=== PATIENT | female | born 1975 | race Caucasian/White ===

== ENCOUNTER → 2018-08-29 15:05 | Outpatient (CLI) | payer OTHER, SELFPAY ==
--- NOTE | 2018-08-29 15:06 | DI.MG.S_ITS ---
BILATERAL DIGITAL SCREENING MAMMOGRAM 3D/2D WITH CAD: 08/29/2018 CLINICAL: Baseline exam. Routine screening. No prior exams were available for comparison. There are scattered fibroglandular elements in both breasts. Current study was also evaluated with a Computer Aided Detection (CAD) system. There is an irregular focal asymmetry in the left breast central to the nipple anterior depth. No other significant masses, calcifications, or other findings are seen in either breast. IMPRESSION: INCOMPLETE: NEEDS ADDITIONAL IMAGING EVALUATION The irregular focal asymmetry in the left breast is indeterminate. Additional views with possible ultrasound are recommended. This exam was interpreted at Station ID: [id number]. NOTE: For mammograms, a report in lay terms will be sent to the patient. Approximately 15% of breast malignancies will not be visualized mammographically. In the management of a palpable breast mass, a negative mammogram must not discourage biopsy of a clinically suspicious lesion. Electronically Signed By: Joann urbina/cristi:08/29/2018 15:53:56 letter sent: Additional Imaging Needed ACR BI-RADS Category 0: Incomplete 3340F
== END ==
PROVIDERS: PCP Student in an Organized Health Care Education/Training Program; Visit Provider Student in an Organized Health Care Education/Training Program
DX: Z12.31 Encounter for screening mammogram for malignant neoplasm of breast (principal)
CPT/HCPCS: 77063; 77067

== ENCOUNTER → 2018-09-14 13:37 | Outpatient (CLI) | payer OTHER, SELFPAY ==
--- NOTE | 2018-09-14 13:38 | DI.US.S_ITS ---
LIMITED ULTRASOUND OF LEFT BREAST AND AXILLA: 09/14/2018 CLINICAL: Patient returns today to evaluate a density in the left breast. Comparison is made to exams dated: 09/14/2018 mammogram and 08/29/2018 mammogram - [facility]. Color flow and real-time ultrasound of the left breast 5 o'clock, and axilla regions were performed on the areas of interest. There is an oval intraductal mass with circumscribed margins in the left breast at 5 o'clock in the retroareolar region. This oval mass is hypoechoic. This correlates with mammography findings. Color flow imaging demonstrates that there is no internal vascularity present. No abnormalities were seen sonographically in the left axilla. IMPRESSION: SUSPICIOUS OF MALIGNANCY The oval intraductal mass in the left breast is suggestive of a papilloma but is at an intermediate suspicion for malignancy. An ultrasound guided biopsy is recommended. The findings were discussed with the patient at the conclusion of the study by Dr. Rivers. This exam was interpreted at Station ID: [id number]. Electronically Signed By: Sae cabrera/:09/16/2018 15:56:51 letter sent: Biopsy Required Ultrasound BI-RADS: 4b Suspicious abnormality - intermediate suspicion of malignancy
--- NOTE | 2018-09-14 13:38 | DI.MG.S_ITS ---
UNILATERAL LEFT DIGITAL DIAGNOSTIC MAMMOGRAM 3D/2D WITH ADDITIONAL VIEWS: 09/14/2018 CLINICAL: Additional evaluation requested from prior study. [facility] is [facility] There are scattered fibroglandular elements in left breast. There is an oval equal density focal asymmetry with a circumscribed margin in the left breast at 6 o'clock in the retroareolar region. No other significant masses or calcifications are seen in the breast. IMPRESSION: INCOMPLETE: NEEDS ADDITIONAL IMAGING EVALUATION The oval equal density focal asymmetry in the left breast is indeterminate. An ultrasound is recommended. This exam was interpreted at Station ID: [id number]. NOTE: For mammograms, a report in lay terms will be sent to the patient. Approximately 15% of breast malignancies will not be visualized mammographically. In the management of a palpable breast mass, a negative mammogram must not discourage biopsy of a clinically suspicious lesion. Electronically Signed By: Sae cabrera/cristi:09/14/2018 14:00:03 ACR BI-RADS Category 0: Incomplete 3340F
== END ==
PROVIDERS: PCP Student in an Organized Health Care Education/Training Program; Visit Provider Student in an Organized Health Care Education/Training Program
DX: R92.8 Other abnormal and inconclusive findings on diagnostic imaging of breast (principal); N63.23 Unspecified lump in the left breast, lower outer quadrant
CPT/HCPCS: 76642; 77065; G0279

== ENCOUNTER → 2018-09-30 14:09 | Outpatient (CLI) | payer OTHER, SELFPAY ==
--- NOTE | 2018-09-30 | PATH_ITS ---
[facility] Accession Number: [id number] . 01 Material submitted: . breast - LEFT BREAST . 01 Clinical history: . MASS 5:30 RETROAREOLAR . 01 Diagnosis: Left Breast, Mass at 5:30 o'clock, Retroareolar, Biopsy: Fragments of intraductal papilloma. Background breast with focal giant cell reaction and hemosiderin-laden macrophages, consistent with cyst rupture. Negative for atypia, carcinoma in situ, and invasive malignancy. MRV/10/06/2018 . 01 Electronically signed: . Amelia Montanez MD, Pathologist NPI- [id number] . 01 Gross description: . Received in formalin and is designated left breast mass 5:30 retroareolar. Specimen is received with plastic filter in container. Specimen is found loose in container. Specimen consists of multiple fragments of ceron-yellow soft tissue measuring 1.8 x 0.9 x 0.4 cm in aggregate. All tissue is entirely submitted in one cassette. Per the specimen requisition, the collection date was 09/30/2018. Per the container, the collection time was 3:10 p.m. Total fixation time is 24-48 hours. (MR:[id number]) /FRR . 01 Pathologist provided ICD-10: N63.0 . 01 CPT . 236972 Performed at: [address] [facility] [address], [place], [place] [id number] MD Sae Colin MD Phone: [phone]
--- NOTE | 2018-09-30 | DI.MG.S_ITS ---
UNILATERAL LEFT DIGITAL DIAGNOSTIC MAMMOGRAM POST-EXCISIONAL BIOPSY: 09/30/2018 CLINICAL: Left breast mass. Comparison is made to exams dated: 09/30/2018 ultrasound biopsy, 09/14/2018 ultrasound, 09/14/2018 mammogram, and 08/29/2018 mammogram - [facility]. There are scattered fibroglandular elements in left breast. A biopsy marker is noted in the left breast 6:00 axis corresponding with location of suspicious intraductal lesion of interest seen on recent diagnostic left breast evaluation. IMPRESSION: POST PROCEDURE MAMMOGRAM FOR MARKER PLACEMENT Biopsy marker in place at the 6:00 axis, anterior left breast. This exam was interpreted at Station ID: [id number]. NOTE: For mammograms, a report in lay terms will be sent to the patient. Approximately 15% of breast malignancies will not be visualized mammographically. In the management of a palpable breast mass, a negative mammogram must not discourage biopsy of a clinically suspicious lesion. Electronically Signed By: Blade Gutierrez M.D. aty/:09/30/2018 15:49:14 ACR BI-RADS Category Post-procedure mammogram for marker placement
--- NOTE | 2018-09-30 14:10 | DI.US.S_ITS ---
ULTRASOUND GUIDED BIOPSY LEFT BREAST USING VACUUM DEVICE WITH MARKING DEVICE INSERTED AND POST MAMMOGRAPHIC IMAGIN09/30/2018 CLINICAL: Left breast mass. PATIENT CONSENT: Risks (minor bleeding, infection, vasovagal reaction and repeat procedure), benefits and alternatives were explained to the patient and written informed consent was obtained. Correlation is made to exams dated: 09/14/2018 ultrasound, 09/14/2018 mammogram, and 08/29/2018 mammogram - [facility]. An ultrasound guided biopsy using real-time ultrasound was performed for the lesion located in the left breast at 6 o'clock in the retroareolar region. This was described on the previous mammography and ultrasound reports. The skin was prepped in the usual manner. Local anesthetic was administered to the access site. A skin ronal was made in the breast. The abnormality was approached from the lateral aspect. A 13 gauge biopsy needle was placed adjacent to the abnormality under ultrasound guidance. Once the needle was documented to be in the correct location, six specimens were obtained using the Mammotome biopsy system. A clip was inserted into the biopsy cavity. A sterile dressing was applied to the access site. Post procedure mammographic imaging demonstrates the location device at the targeted area. The specimens were sent to the laboratory for pathological analysis. IMPRESSION: ULTRASOUND GUIDED BIOPSY BENIGN Ultrasound guided biopsy of the lesion in the left breast at 6 o'clock in the retroareolar region was successful. Pathology demonstrates an intraductal papilloma. Given the size of the mass and the potential for pathological upstaging, a surgical consultation is recommended. Findings were reported to Dr. Cruz's triage nurse on 10/17/18 at 1:05 PM. This exam was interpreted at Station ID: [id number]. Blade salazar,ddp/:10/17/2018 13:06:06
== END ==
PROVIDERS: PCP Student in an Organized Health Care Education/Training Program; Visit Provider Student in an Organized Health Care Education/Training Program
DX: D24.2 Benign neoplasm of left breast (principal)
CPT/HCPCS: 19083; 77065

== ENCOUNTER 2018-10-19 13:00 | Outpatient (RCR) | payer OTHER, SELFPAY ==
--- NOTE | 2018-09-15 16:33 | PT.OIE ---
Current Diagnoses Stress incontinence (female) (male) (09/15/18) Overflow incontinence (09/15/18) Past Medical History (Last Reviewed 08/04/18 @ 10:33 by Avinash Ortiz MD) Attention deficit hyperactivity disorder (ADHD) (Chronic 08/25/16) Anxiety and depression (Chronic 08/25/16) Hypertension (Acute) ADHD (attention deficit hyperactivity disorder) (Chronic 2007) Anxiety (Chronic 2008) Depression (Chronic 2007) Bulimia (Resolved 1993) Chickenpox (Resolved 1985) Past Surgical History (Last Reviewed 08/04/18 @ 10:33 by Avinash Ortiz MD) Status post delivery (Resolved 09/10/04) Status post knee surgery (Chronic) Provider Visit Care Team Role Provider Type Ricki Cruz MD Primary Care Provider Physician Specialty: Internal Medicine Address: [address] [place] [address] Email: Avinash Ortiz MD Attending Provider Physician Specialty: WIND TURBINE DESIGN ENGINEER Address: [address] [place] [address] Email: Physical Therapy Initial Evaluation PT-OP-A Visit Information Start: 09/15/18 13:58 Freq: Status: Active Protocol: Document 09/15/18 13:50 BS (Rec: 09/15/18 14:03 BS [id number]) Out-Patient Physical Therapy Visit Information Visit Information Visit Type Initial Evaluation Visit Start Time 13:50 Visit Stop Time 14:30 Total Visit Minutes 40 Visit Number 1 Number of GALVANOMETER ASSEMBLER Visits 0 Evaluation Information Evaluation Date 09/15/18 PT-OP-B Current Condition Start: 09/15/18 13:58 Freq: Status: Active Protocol: Document 09/15/18 13:50 BS (Rec: 09/15/18 14:03 BS [id number]) Current Condition History of Current Condition Onset Date 2004 Current Complaints urinary incontinence History of Current Condition Pt complains of urinary incontinence that occurs when she is laughing, coughing, sneezing, or running. She started noticing this after giving to her second child in 2004. Pt also reports that she does sometimes have increased urgency with urination and occasionally feels some pelvic floor heaviness after voiding. She denies pelvic pain or frequent UTIs, both children were delivered via section . Prior Treatments and Tests Pt has tried doing kegels before but is not sure she is doing them correctly. Prior Functional Status Baseline Function- ADL's Independent Baseline Function- Mobility Independent Baseline Function- Gait Independent no AD Current Functional Impairments (Reported) Functional Limitations- ADL's urinary incontinence with coughing, laughing, sneezing, and running. Functional Limitations- Recreation/ Pt reports that she is unable Hobbies to engage in recreation exercise and running without urinary incontinence. PT-OP-C Subjective Start: 09/15/18 13:58 Freq: Status: Active Protocol: Document 09/15/18 13:50 BS (Rec: 09/15/18 16:07 BS [email or web address]) OP-PT Subjective Patient Comments Patient Comments have had some leakage since 2010 but more noticeable the last 2-3 years. Finally have more time to focus on me and making this better. Patient Questionnaires Pelvic Pain and Urgency/Frequency Patient Symptom Scale Pelvic Pain Score 12 OP-PT Pain Assessment Comments Pain Comments Pt denies pelvic pain. PT-OP-I Pelvic Floor Start: 09/15/18 13:58 Freq: Status: Active Protocol: Document 09/15/18 13:50 AMB (Rec: 09/15/18 14:57 AMB [email or web address]) Pelvic Floor Assessment Urine Pelvic Floor Surgery No: 2 c-sections Urinary Symptoms Urge Sensation Incomplete Emptying Leakage Size Medium Leakage Cause Cough Exercise Sneeze Other Leakage Causes Running Voiding Frequency 7-10x/day Nocturia 3-4 Urine Pad Type Panty Liner Prolapse Prolapse Comments no prolapse visible with valsalva Perineal Descent Resting Absent Bearing Absent SEMG (uV) Baseline 8 Quick Contraction 18 Contraction Ability Voluntary Contraction Weak Voluntary Relaxation Weak Manual Muscle Testing Left 0 Manual Muscle Testing Right 0 Manual Muscle Testing Anterior 0 Manual Muscle Testing Posterior 0 Comments Pelvic Floor Comments Pt tends to use adductors instead of pelvic floor. PT-OP-Q Treatments Start: 09/15/18 13:58 Freq: Status: Active Protocol: Document 09/15/18 13:50 BS (Rec: 09/15/18 16:15 BS [email or web address]) Neuro Re-Education Treatment Other Activities 2 Details electrical stimulation pelvic floor Reps/Duration 10sec contract, 20 sec relax x5 1 Details sEMG pelvic floor Comments quick flicks resting baseline:8 max:18 minimal pelvic floor contraction, compensates with adductors and abdominals PT-OP-T Assessment and Plan Start: 09/15/18 13:58 Freq: Status: Active Protocol: Document 09/15/18 13:50 BS (Rec: 09/15/18 14:35 BS [id number]) Physical Therapy Assessment Rehab Potential Rehabilitation Potential Good Evaluation Complexity Number of Personal Factors/Comorbidities 0 Number of Body Systems Impaired 1-2 Clinical Presentation at Evaluation Stable Impairments Impairments Activity Tolerance Functional Activities Functional Mobility Strength Tone Goals Three Impairment weakness Short Term Goal (STG) Pt will become independent with a prescribed HEP for pelvic floor strengthening to maximize rehabilitation potential outside of formal PT sessions. Residential Goal (LTG) Pt to demonstrate at least 4/5 muscle strength of pelvic floor to decrease urinary incontinence with increased intra-abdominal pressure. LTG Duration 12 weeks Two Short Term Goal (STG) Pt will be able to cough or sneeze without leaking. STG Duration 6 weeks Veterinary Assistant Technician Goal (LTG) Pt will wake <2x per night to void so that she that she is able to sleep better at night. LTG Duration 10 weeks One Impairment neuromuscular control Short Term Goal (STG) Pt will be able to actively contract and isolate pelvic floor musculature without compensation from other muscle groups. STG Duration 3 weeks Residential Goal (LTG) Pt will return to running and/ or recreational exercise of choice without leaking. LTG Duration 8 weeks Assessment Summary Assessment Nataly is a 42 year old female who presents to physical therapy with signs and symptoms consistent with stress incontinence. Pt experiences urinary leakage with running, coughing, sneezing, and laughing. She first noticed this after the of her 2nd child in 2004 and states that she finally has time to address the issue with physical therapy intervention. Pt does report that she occasionally experiences increased urgency to urinate. She denies pelvic pain, frequent UTIs, chronic cough or constipation. With internal palpation of pelvic floor, pt demo'd significant weakness with little ability to actively contract her pelvic floor, contributing to her stress incontinence. Pt benefits from skilled PT intervention consisting of neuromuscular re-education and ther-ex to improve her ability to contract pelvic floor and build strength to reduce urinary incontinence. Physical Therapy Plan Frequency and Duration Frequency of Treatment 1-2x/week Duration of Treatment 10-12 weeks Plan of Care Start Date 09/15/18 Plan of Care End Date 12/08/18 Therapeutic Interventions Therapeutic Interventions Home Exercise Program Manual Therapy Neuromuscular Re-education Patient/Caregiver Education Self-Care/Home Management Soft Tissue Mobilization Taping Therapeutic Activities Therapeutic Exercises Modalities Biofeedback Cold Pack/Ice Massage Electric Stimulation Hot Packs Next Visit Focus/Plan Next Note Type Treatment Note Next Visit Plan electrical stimulation to facilitate pelvic floor contraction and use of sEMG for visual feedback of pelvic floor activity. Pt had poor neuromuscular recruitment of pelvic floor at IE.
--- NOTE | 2018-09-15 16:34 | PT.OPPOC ---
Current Diagnoses Stress incontinence (female) (male) (09/15/18) Overflow incontinence (09/15/18) Provider Visit Care Team Role Provider Type Ricki Cruz MD Primary Care Provider Physician Specialty: Internal Medicine Address: [address] [place] [address], [id number] Email: Avinash Ortiz MD Attending Provider Physician Specialty: INSURANCE SALES SUPERVISOR Address: [address] [place] [address], [id number] Email: Plan Of Care PT-OP-T Assessment and Plan Start: 09/15/18 13:58 Freq: Status: Active Protocol: Document 09/15/18 13:50 BS (Rec: 09/15/18 14:35 BS [id number]) Physical Therapy Assessment Rehab Potential Rehabilitation Potential Good Evaluation Complexity Number of Personal Factors/Comorbidities 0 Number of Body Systems Impaired 1-2 Clinical Presentation at Evaluation Stable Impairments Impairments Activity Tolerance Functional Activities Functional Mobility Strength Tone Goals Three Impairment weakness Short Term Goal (STG) Pt will become independent with a prescribed HEP for pelvic floor strengthening to maximize rehabilitation potential outside of formal PT sessions. Correction Goal (LTG) Pt to demonstrate at least 4/5 muscle strength of pelvic floor to decrease urinary incontinence with increased intra-abdominal pressure. LTG Duration 12 weeks Two Short Term Goal (STG) Pt will be able to cough or sneeze without leaking. STG Duration 6 weeks Correction Goal (LTG) Pt will wake <2x per night to void so that she that she is able to sleep better at night. LTG Duration 10 weeks One Impairment neuromuscular control Short Term Goal (STG) Pt will be able to actively contract and isolate pelvic floor musculature without compensation from other muscle groups. STG Duration 3 weeks Vp Project Goal (LTG) Pt will return to running and/ or recreational exercise of choice without leaking. LTG Duration 8 weeks Assessment Summary Assessment Nataly is a 42 year old female who presents to physical therapy with signs and symptoms consistent with stress incontinence. Pt experiences urinary leakage with running, coughing, sneezing, and laughing. She first noticed this after the of her 2nd child in 2004 and states that she finally has time to address the issue with physical therapy intervention. Pt does report that she occasionally experiences increased urgency to urinate. She denies pelvic pain, frequent UTIs, chronic cough or constipation. With internal palpation of pelvic floor, pt demo'd significant weakness with little ability to actively contract her pelvic floor, contributing to her stress incontinence. Pt benefits from skilled PT intervention consisting of neuromuscular re-education and ther-ex to improve her ability to contract pelvic floor and build strength to reduce urinary incontinence. Physical Therapy Plan Frequency and Duration Frequency of Treatment 1-2x/week Duration of Treatment 10-12 weeks Plan of Care Start Date 09/15/18 Plan of Care End Date 12/08/18 Therapeutic Interventions Therapeutic Interventions Home Exercise Program Manual Therapy Neuromuscular Re-education Patient/Caregiver Education Self-Care/Home Management Soft Tissue Mobilization Taping Therapeutic Activities Therapeutic Exercises Modalities Biofeedback Cold Pack/Ice Massage Electric Stimulation Hot Packs Next Visit Focus/Plan Next Note Type Treatment Note Next Visit Plan electrical stimulation to facilitate pelvic floor contraction and use of sEMG for visual feedback of pelvic floor activity. Pt had poor neuromuscular recruitment of pelvic floor at IE. Plan of Care Dates Plan of Care Start Date 09/15/18 Plan of Care End Date 12/08/18 Please Sign and Return: I have reviewed this Plan of Care and certify that the skilled therapy services above are required to meet the patient?s needs. Physician Signature Date Printed Name and Credentials Clinical Instructor Signature Printed Name and Credentials
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
--- NOTE | 2018-10-12 16:00 | PT.OTN ---
Current Diagnoses Stress incontinence (female) (male) (10/12/18) Overflow incontinence (10/12/18) Physical Therapy Treatment Note PT-OP-A Visit Information Start: 09/15/18 13:58 Freq: Status: Active Protocol: Document 10/12/18 13:00 AMB (Rec: 10/13/18 07:30 AMB [email or web address]) Out-Patient Physical Therapy Visit Information Visit Information Visit Type Treatment Note Visit Start Time 13:00 Visit Stop Time 13:45 Total Visit Minutes 45 Visit Number 3 PT-OP-B Current Condition Start: 09/15/18 13:58 Freq: Status: Active Protocol: Document 09/15/18 13:50 BS (Rec: 09/15/18 14:03 BS [id number]) Current Condition History of Current Condition Onset Date 2004 Current Complaints urinary incontinence History of Current Condition Pt complains of urinary incontinence that occurs when she is laughing, coughing, sneezing, or running. She started noticing this after giving to her second child in 2004. Pt also reports that she does sometimes have increased urgency with urination and occasionally feels some pelvic floor heaviness after voiding. She denies pelvic pain or frequent UTIs, both children were delivered via section . Prior Treatments and Tests Pt has tried doing kegels before but is not sure she is doing them correctly. Prior Functional Status Baseline Function- ADL's Independent Baseline Function- Mobility Independent Baseline Function- Gait Independent no AD Current Functional Impairments (Reported) Functional Limitations- ADL's urinary incontinence with coughing, laughing, sneezing, and running. Functional Limitations- Recreation/ Pt reports that she is unable Hobbies to engage in recreation exercise and running without urinary incontinence. PT-OP-C Subjective Start: 09/15/18 13:58 Freq: Status: Active Protocol: Document 10/12/18 13:00 AMB (Rec: 10/13/18 07:29 AMB [email or web address]) OP-PT Subjective Patient Comments Patient Comments Pt states she has been having some high blood pressure. Has been on meds for about 3 months, but numbers aren't coming down. Had a breast biopsy and is a bit stressed about that. PT-OP-I Pelvic Floor Start: 09/15/18 13:58 Freq: Status: Active Protocol: Document 09/15/18 13:50 AMB (Rec: 09/15/18 14:57 AMB [email or web address]) Pelvic Floor Assessment Urine Pelvic Floor Surgery No: 2 c-sections Urinary Symptoms Urge Sensation Incomplete Emptying Leakage Size Medium Leakage Cause Cough Exercise Sneeze Other Leakage Causes Running Voiding Frequency 7-10x/day Nocturia 3-4 Urine Pad Type Panty Liner Prolapse Prolapse Comments no prolapse visible with valsalva Perineal Descent Resting Absent Bearing Absent SEMG (uV) Baseline 8 Quick Contraction 18 Contraction Ability Voluntary Contraction Weak Voluntary Relaxation Weak Manual Muscle Testing Left 0 Manual Muscle Testing Right 0 Manual Muscle Testing Anterior 0 Manual Muscle Testing Posterior 0 Comments Pelvic Floor Comments Pt tends to use adductors instead of pelvic floor. PT-OP-Q Treatments Start: 09/15/18 13:58 Freq: Status: Active Protocol: Document 10/12/18 13:00 AMB (Rec: 10/13/18 07:29 AMB [email or web address]) Therapeutic Exercises Sitting Exercises 1 Sitting Exercise Name hip add Comments seated with PF stab Other Exercises 1 Other Exercise Name quadruped quick flicks long holds Reps/Minutes 2x30 Neuro Re-Education Treatment Other Activities 1 Details sEMG pelvic floor Comments quick flicks 5 second holds resting baseline:15 max:28 PT-OP-T Assessment and Plan Start: 09/15/18 13:58 Freq: Status: Active Protocol: Document 10/12/18 13:00 AMB (Rec: 10/13/18 07:29 AMB [email or web address]) Physical Therapy Assessment Assessment Summary Assessment Tried standing exercises, but pt felt only abdominal stabilization with that. Continue with quadruped, sitting, supine for now. BP 160/90 Physical Therapy Plan Next Visit Focus/Plan Next Note Type Treatment Note Next Visit Plan Biofeedback, may need to reassess manually due weakness at eval but high baseline activity level with biofeedback
--- NOTE | 2018-10-19 15:26 | PT.OTN ---
Current Diagnoses Stress incontinence (female) (male) (10/19/18) Overflow incontinence (10/19/18) Physical Therapy Treatment Note PT-OP-A Visit Information Start: 09/15/18 13:58 Freq: Status: Active Protocol: Document 10/19/18 13:00 AMB (Rec: 10/19/18 13:47 AMB [email or web address]) Out-Patient Physical Therapy Visit Information Visit Information Visit Type Treatment Note Visit Start Time 13:00 Visit Stop Time 13:45 Total Visit Minutes 45 Visit Number 4 PT-OP-B Current Condition Start: 09/15/18 13:58 Freq: Status: Active Protocol: Document 09/15/18 13:50 BS (Rec: 09/15/18 14:03 BS [id number]) Current Condition History of Current Condition Onset Date 2004 Current Complaints urinary incontinence History of Current Condition Pt complains of urinary incontinence that occurs when she is laughing, coughing, sneezing, or running. She started noticing this after giving to her second child in 2004. Pt also reports that she does sometimes have increased urgency with urination and occasionally feels some pelvic floor heaviness after voiding. She denies pelvic pain or frequent UTIs, both children were delivered via section . Prior Treatments and Tests Pt has tried doing kegels before but is not sure she is doing them correctly. Prior Functional Status Baseline Function- ADL's Independent Baseline Function- Mobility Independent Baseline Function- Gait Independent no AD Current Functional Impairments (Reported) Functional Limitations- ADL's urinary incontinence with coughing, laughing, sneezing, and running. Functional Limitations- Recreation/ Pt reports that she is unable Hobbies to engage in recreation exercise and running without urinary incontinence. PT-OP-C Subjective Start: 09/15/18 13:58 Freq: Status: Active Protocol: Document 10/19/18 13:00 AMB (Rec: 10/19/18 13:47 AMB [email or web address]) OP-PT Subjective Patient Comments Patient Comments Pt has noticed a better ability to not leak with cough in seated, although she is still worried that in standing she would leak. PT-OP-I Pelvic Floor Start: 09/15/18 13:58 Freq: Status: Active Protocol: Document 09/15/18 13:50 AMB (Rec: 09/15/18 14:57 AMB [email or web address]) Pelvic Floor Assessment Urine Pelvic Floor Surgery No: 2 c-sections Urinary Symptoms Urge Sensation Incomplete Emptying Leakage Size Medium Leakage Cause Cough Exercise Sneeze Other Leakage Causes Running Voiding Frequency 7-10x/day Nocturia 3-4 Urine Pad Type Panty Liner Prolapse Prolapse Comments no prolapse visible with valsalva Perineal Descent Resting Absent Bearing Absent SEMG (uV) Baseline 8 Quick Contraction 18 Contraction Ability Voluntary Contraction Weak Voluntary Relaxation Weak Manual Muscle Testing Left 0 Manual Muscle Testing Right 0 Manual Muscle Testing Anterior 0 Manual Muscle Testing Posterior 0 Comments Pelvic Floor Comments Pt tends to use adductors instead of pelvic floor. PT-OP-Q Treatments Start: 09/15/18 13:58 Freq: Status: Active Protocol: Document 10/19/18 13:00 AMB (Rec: 10/19/18 15:26 AMB [email or web address]) Therapeutic Exercises Supine Exercises 3 Supine Exercise Name bent leg fall out Comments wiht PF 2 Supine Exercise Name bridge Comments with PF 1 Supine Exercise Name supine july Comments with PF Sitting Exercises 1 Sitting Exercise Name hip add Comments seated with PF stab Other Exercises 2 Other Exercise Name quadruped UE flexion Reps/Minutes 10 1 Other Exercise Name quadruped quick flicks long holds Reps/Minutes 2x30 PT-OP-T Assessment and Plan Start: 09/15/18 13:58 Freq: Status: Active Protocol: Document 10/19/18 13:00 AMB (Rec: 10/19/18 14:41 AMB [email or web address]) Physical Therapy Assessment Assessment Summary Assessment Pt with lower baseline tone today, lower overall maximum activity, and continued to fatigue with exercises, standing exercises still difficult. Physical Therapy Plan Next Visit Focus/Plan Next Note Type Treatment Note Next Visit Plan Reassess after 1 month break due to therapist and patient schedule
--- NOTE | 2018-12-05 07:54 | PT.OPDS ---
Current Diagnoses Stress incontinence (female) (male) (10/19/18) Overflow incontinence (10/19/18) Provider Visit Care Team Role Provider Type Ricki Cruz MD Primary Care Provider Physician Specialty: Internal Medicine Address: [address] [place] [id number] Email: Avinash Ortiz MD Attending Provider Physician Specialty: [employer] Address: [address] [place] [address], [phone] Email: Visit Number Visit Number 4 Discharge Summary PT-OP-B Current Condition Start: 09/15/18 13:58 Freq: Status: Active Protocol: Document 09/15/18 13:50 BS (Rec: 09/15/18 14:03 BS [id number]) Current Condition History of Current Condition Onset Date 2004 Current Complaints urinary incontinence History of Current Condition Pt complains of urinary incontinence that occurs when she is laughing, coughing, sneezing, or running. She started noticing this after giving to her second child in 2004. Pt also reports that she does sometimes have increased urgency with urination and occasionally feels some pelvic floor heaviness after voiding. She denies pelvic pain or frequent UTIs, both children were delivered via section . Prior Treatments and Tests Pt has tried doing kegels before but is not sure she is doing them correctly. Prior Functional Status Baseline Function- ADL's Independent Baseline Function- Mobility Independent Baseline Function- Gait Independent no AD Current Functional Impairments (Reported) Functional Limitations- ADL's urinary incontinence with coughing, laughing, sneezing, and running. Functional Limitations- Recreation/ Pt reports that she is unable Hobbies to engage in recreation exercise and running without urinary incontinence. PT-OP-C Subjective Start: 09/15/18 13:58 Freq: Status: Active Protocol: Document 10/19/18 13:00 AMB (Rec: 10/19/18 13:47 AMB [email or web address]) OP-PT Subjective Patient Comments Patient Comments Pt has noticed a better ability to not leak with cough in seated, although she is still worried that in standing she would leak. PT-OP-I Pelvic Floor Start: 09/15/18 13:58 Freq: Status: Active Protocol: Document 09/15/18 13:50 AMB (Rec: 09/15/18 14:57 AMB [email or web address]) Pelvic Floor Assessment Urine Pelvic Floor Surgery No: 2 c-sections Urinary Symptoms Urge Sensation Incomplete Emptying Leakage Size Medium Leakage Cause Cough Exercise Sneeze Other Leakage Causes Running Voiding Frequency 7-10x/day Nocturia 3-4 Urine Pad Type Panty Liner Prolapse Prolapse Comments no prolapse visible with valsalva Perineal Descent Resting Absent Bearing Absent SEMG (uV) Baseline 8 Quick Contraction 18 Contraction Ability Voluntary Contraction Weak Voluntary Relaxation Weak Manual Muscle Testing Left 0 Manual Muscle Testing Right 0 Manual Muscle Testing Anterior 0 Manual Muscle Testing Posterior 0 Comments Pelvic Floor Comments Pt tends to use adductors instead of pelvic floor. PT-OP-T Assessment and Plan Start: 09/15/18 13:58 Freq: Status: Active Protocol: Document 12/05/18 07:50 AMB (Rec: 12/05/18 07:54 AMB [email or web address]) Physical Therapy Assessment Assessment Summary Assessment Nataly canceled her remaining appointments saying that she doesn't really have time to make further appointments. She attended 4 appointments and in that time had noticed an improvement with continence in sitting, but continued to have stress incontinence in standing, she should be able to continue to strengthen at this time, although it will take more time to see strength gains. Physical Therapy Plan Discharge Physical Therapy Discharge Reasons Patient Request
== END 2018-12-14 10:48 | disposition home or self-care (01) ==
LOC: PHYS 13:00
PROVIDERS: PCP Student in an Organized Health Care Education/Training Program
DX: N39.3 Stress incontinence (female) (male) (principal); N39.490 Overflow incontinence
CPT/HCPCS: 97110; 97112; 97161

== ENCOUNTER → 2019-03-14 11:56 | Outpatient (CLI) | payer OTHER, SELFPAY ==
[2019-03-14 13:08] LABS: BUN Creatinine Ratio 21.7 (6-22); Blood Urea Nitrogen 13 mg/dL (7-17); Calcium 10.3 mg/dL (8.4-10.2); Carbon Dioxide 23 mmol/L (22-32); Chloride 103 mmol/L (98-107); Estimated Glomerular Filt Rate > 60.0 mL/min (>60); Glucose 87 mg/dL (70-100); HEMOLYSIS < 15 (0-50); Potassium 3.9 mmol/L (3.4-5.1); Sodium 139 mmol/L (137-145)
[2019-03-14 14:37] LABS: Vitamin D 25 Hydroxy (D3) 18.8 ng/mL (30.0-100.0)
== END ==
PROVIDERS: PCP Student in an Organized Health Care Education/Training Program; Visit Provider Student in an Organized Health Care Education/Training Program
DX: E55.9 Vitamin D deficiency, unspecified (principal); I10 Essential (primary) hypertension
CPT/HCPCS: 36415; 80048; 82306

== ENCOUNTER → 2019-09-01 11:45 | Outpatient (CLI) | payer OTHER, MEDICAID, SELFPAY ==
--- NOTE | 2019-09-01 11:47 | DI.US.S_ITS ---
ULTRASOUND OF LEFT BREAST: 09/01/2019 CLINICAL: Follow-up biopsy. No prior exams were available for comparison. Color flow and real-time ultrasound of the left breast were performed. Dorado scale images of the real-time examination were reviewed. 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 This intraductal mass is hypoechoic. This abnormality is not significantly changed and correlates with mammography findings and the previous biopsy. Color flow imaging demonstrates that there is no vascularity present. IMPRESSION: BENIGN There is no sonographic evidence of malignancy. The intraductal mass in the left breast is consistent with biopsy proven papilloma and is benign. Recommend continued clinical and imaging surveillance with follow-up bilateral mammogram and a left breast ultrasound in 12 months. This exam was interpreted at Station ID: [id number]. Electronically Signed By: Blade Gutierrez M.D. aty/:09/01/2019 13:22:41 letter sent: Followup Recommended Ultrasound BI-RADS: 2 Benign
--- NOTE | 2019-09-01 11:47 | DI.MG.S_ITS ---
BILATERAL DIGITAL DIAGNOSTIC MAMMOGRAM 3D/2D: 09/01/2019 CLINICAL: Follow up from prior biopsy. Comparison is made to exams dated: 09/30/2018 mammogram, 09/14/2018 mammogram, and 08/29/2018 mammogram - [facility]. There are scattered fibroglandular elements in both breasts. There is an oval equal density focal asymmetry with a circumscribed margin in the left breast at 6 o'clock in the retroareolar region. This is not significantly changed and correlates with ultrasound findings and the biopsy. There is a biopsy clip associated with the focal asymmetry compatible with biopsy proven intraductal papilloma. No other significant masses, calcifications, or other findings are seen in either breast. IMPRESSION: INCOMPLETE: NEEDS ADDITIONAL IMAGING EVALUATION The oval equal density focal asymmetry in the left breast is consistent with biopsy proven papillary lesion. Clinical and imaging observation required with further evaluation by sonogram. This is scheduled to immediately follow this study. This exam was interpreted at Station ID: [id number]. NOTE: For mammograms, a report in lay terms will be sent to the patient. Approximately 15% of breast malignancies will not be visualized mammographically. In the management of a palpable breast mass, a negative mammogram must not discourage biopsy of a clinically suspicious lesion. Electronically Signed By: Blade Gutierrez M.D. aty/:09/01/2019 13:20:07 ACR BI-RADS Category 0: Incomplete [id number]
== END ==
PROVIDERS: PCP Student in an Organized Health Care Education/Training Program; Referring Provider Student in an Organized Health Care Education/Training Program; Visit Provider Student in an Organized Health Care Education/Training Program
DX: R92.8 Other abnormal and inconclusive findings on diagnostic imaging of breast (principal); D24.2 Benign neoplasm of left breast
CPT/HCPCS: 76642; 77066; G0279

== ENCOUNTER → 2020-07-11 11:47 | Outpatient (CLI) | payer OTHER, SELFPAY ==
[2020-07-11 13:08] LABS: Hemoglobin A1C% w Est Avg Glu 5.2 % (4.0-6.0)
[2020-07-11 13:15] LABS: Hematocrit 41.9 % (36-46); Mean Corpuscular HGB Conc 33.5 % (30-36); Mean Corpuscular Hemoglobin 27.6 PG (26-34); Mean Corpuscular Volume 82.3 fL (80-100); Platelet Count 369 X10^3/uL (150-400); Red Blood Cell Count 5.09 X10^6/uL (4.0-5.2); Red Cell Distribution Width 12.9 % (11.6-14.8); White Blood Cell Count 9.9 X10^3/uL (4.5-11.0)
[2020-07-11 13:23] LABS: Alanine Aminotransferase 20 IU/L (<35); Albumin 4.1 g/dL (3.5-5.0); Albumin Globulin Ratio 1.5 (1.0-2.8); Alkaline Phosphatase 136 U/L (38-126); Aspartate Aminotransferase 18 IU/L (14-36); Bilirubin Total 0.2 mg/dL (0.2-1.3); Blood Urea Nitrogen 17 mg/dL (7-17); Calcium 9.7 mg/dL (8.4-10.2); Carbon Dioxide 25 mmol/L (22-32); Chloride 104 mmol/L (98-107); Estimated Glomerular Filt Rate > 60.0 mL/min (>60); Globulin 2.8 g/dL (1.7-4.1); Glucose 80 mg/dL (70-100); HEMOLYSIS < 15 (0-50); Potassium 4.4 mmol/L (3.4-5.1); Sodium 138 mmol/L (137-145); Total Protein 6.9 g/dL (6.3-8.2)
[2020-07-11 13:52] LABS: TSH w/ Reflex to FT4 1.13 uIU/mL (0.47-4.68)
[2020-07-11 15:43] LABS: Vitamin D 25 Hydroxy (D3) 23.5 ng/mL (30.0-100.0)
== END ==
PROVIDERS: PCP Student in an Organized Health Care Education/Training Program; Referring Provider Student in an Organized Health Care Education/Training Program; Visit Provider Student in an Organized Health Care Education/Training Program
DX: E55.9 Vitamin D deficiency, unspecified (principal); F90.0 Attention-deficit hyperactivity disorder, predominantly inattentive type; R61 Generalized hyperhidrosis; I10 Essential (primary) hypertension
CPT/HCPCS: 36415; 80053; 82306; 83036; 83835; 84443; 85027

== ENCOUNTER → 2020-12-23 09:40 | Outpatient (CLI) | payer OTHER, SELFPAY ==
[2020-12-23 11:54] LABS: COVID19 -Nasal RAPID Negative (Negative)
== END ==
PROVIDERS: PCP Student in an Organized Health Care Education/Training Program; Visit Provider Physician Assistant
DX: Z01.812 Encounter for preprocedural laboratory examination (principal); Z20.822 Contact with and (suspected) exposure to COVID-19
CPT/HCPCS: 87635

== ENCOUNTER → 2021-01-06 13:22 | Outpatient (CLI) | payer OTHER, SELFPAY ==
--- NOTE | 2021-01-06 13:23 | DI.US.S_ITS ---
ULTRASOUND OF LEFT BREAST AND AXILLA: 01/06/2021 CLINICAL: Patient returns for a 12 month follow up of the left breast. Comparison is made to exams dated: 01/06/2021 mammogram, 09/01/2019 ultrasound, 09/01/2019 mammogram, 09/30/2018 mammogram, 09/30/2018 ultrasound biopsy, and 09/14/2018 [facility]. Color flow and real-time ultrasound of the left breast axilla were performed. Dorado scale images of the real-time examination were reviewed. Redemonstration of previously described intraductal mass with a circumscribed margin in the left breast at 5 o'clock in the retroareolar region. This intraductal mass is hypoechoic and consistent with biopsy proven intraductal papilloma which is being followed by imaging surveillance. This abnormality is increased in size, more prominent, and represents a change. It correlates with mammography findings. It now measures 2.3 cm x 1.2 cm x 1.2 cm versus 1.2 cm x 0.8 cm x 0.9cm. Color flow imaging demonstrates that there is no vascularity present, but there is adjacent vascularity as before. No significant abnormalities were seen sonographically in the left axilla. IMPRESSION: BENIGN There is no sonographic evidence of malignancy. However, the biopsy proven intraductal papilloma in the left breast at 5:30 o'clock has increased in size and conspicuity now measuring 2.3 cm x 1.2 cm x 1.2 cm versus 1.2 cm x 0.8 cm x 0.9cm previously. Given its growth, recommend surgical consultation for re-evaluation for possible excisional biopsy versus continued imaging surveillance. If imaging surveillance is requested, recommend follow-up left ultrasound in 6 months to demonstrate stability. Findings and recommendations were conveyed to the patient during today's evaluation. This exam was interpreted at Station ID: [id number]. Electronically Signed By: Blade Gutierrez M.D. aty/:01/06/2021 15:24:57 letter sent: Clinical Evaluation Ultrasound BI-RADS: 2 Benign
--- NOTE | 2021-01-06 13:23 | DI.MG.S_ITS ---
BILATERAL DIGITAL DIAGNOSTIC MAMMOGRAM 3D/2D SHORT-TERM FOLLOW-UP: 01/06/2021 CLINICAL: Short term follow up for the left breast. Comparison is made to exams dated: 09/01/2019 ultrasound, 09/01/2019 mammogram, 09/30/2018 mammogram, and 09/14/2018 ultrasound - [facility]. There are scattered fibroglandular elements in both breasts. Redemonstration of previously described oval equal density focal asymmetry with a circumscribed margin in the left breast at 6 o'clock in the retroareolar region. This is not significantly changed and correlates with ultrasound findings and the biopsy. There is a biopsy clip associated with the focal asymmetry. No other significant masses, calcifications, or other findings are seen in either breast. IMPRESSION: INCOMPLETE: NEEDS ADDITIONAL IMAGING EVALUATION The oval equal density focal asymmetry in the left breast is consistent with biopsy proven intraductal papilloma and is indeterminate. An ultrasound is recommended for further evaluation and is scheduled to immediately follow this study. This exam was interpreted at Station ID: [id number]. NOTE: For mammograms, a report in lay terms will be sent to the patient. Approximately 15% of breast malignancies will not be visualized mammographically. In the management of a palpable breast mass, a negative mammogram must not discourage biopsy of a clinically suspicious lesion. Electronically Signed By: Blade Gutierrez M.D. aty/:01/06/2021 13:52:17 ACR BI-RADS Category 0: Incomplete 3340F
== END ==
PROVIDERS: PCP Student in an Organized Health Care Education/Training Program; Referring Provider Student in an Organized Health Care Education/Training Program; Visit Provider Student in an Organized Health Care Education/Training Program
DX: R92.8 Other abnormal and inconclusive findings on diagnostic imaging of breast (principal); D24.2 Benign neoplasm of left breast
CPT/HCPCS: 76642; 77066; G0279

== ENCOUNTER → 2021-02-17 08:37 | Outpatient (CLI) | payer OTHER, SELFPAY ==
[2021-02-17 12:38] LABS: COVID19 -Nasal RAPID Negative (Negative)
== END ==
PROVIDERS: PCP Student in an Organized Health Care Education/Training Program; Referring Provider Surgery; Visit Provider Surgery
DX: Z20.822 Contact with and (suspected) exposure to COVID-19 (principal); Z01.812 Encounter for preprocedural laboratory examination
CPT/HCPCS: 87635; C9803

== ENCOUNTER 2021-02-18 11:04 | Day surgery (SDC) | payer OTHER, SELFPAY ==
[2021-02-13 08:44] VITALS: BMI 32.5
[2021-02-18] VITALS (8 sets, daily range): BP systolic 119–156; BP diastolic 81–98; PULSE 71–101; RESP 11–16; TEMP 35.7–36.4; O2SAT 95–100; BMI 32.1
--- NOTE | 2021-02-18 | PATH_ITS ---
[facility] Accession Number: [id number] . 01 Material submitted: . breast - LEFT BREAST MASS . 01 Diagnosis: A. Left Breast Mass, Excision: Intraductal papilloma with extensive sclerosis/hyalinization, apocrine metaplasia, focal usual ductal hyperplasia, evidence of hemorrhage, and associated focal microcalcifications. Negative for atypia, carcinoma in situ, and malignancy. [facility] 02/20/2021 1654 Local . 01 Electronically signed: . Amelia Montanez MD, Pathologist NPI- [id number] . 01 Gross description: . The specimen is received in formalin, labeled left breast mass and consists of two unoriented ceron-pink fragments of soft tissue measuring 1.0 x 1.0 x 1.0 cm and 2.0 x 1.0 x 1.0 cm. The fragments are inked blue, serially sectioned to reveal a 0.3 x 0.1 x 0.1 cm silver metallic cylindrical biopsy marker within the smaller fragment. The specimen is entirely submitted. . A1: Smaller fragment, bisected. A2: Larger fragment, serially sectioned. . Formalin fixation time: Approximately 25 hours. (EA:[id number]) /MRV 02/19/2021 1059 Local . 01 Pathologist provided ICD-10: D24.2 . 01 CPT . 632815 Performed at: 01 [facility] [address] [place] [address], [place], [place] [id number] MD Sae Colin MD Phone: [phone]
[2021-02-18] MEDS: LACTATED RINGERS 1,000 ML 100 ML IV (11:51)
--- NOTE | 2021-02-18 12:12 | PM.PREOP ---
Pre-operative Note Interval Note History & Physical reviewed/Exam performed by Physician: Yes Changes to H&P: No
[2021-02-18] MEDS: CEFAZOLIN 1 GM VIAL 2 GM IV (12:55)
--- NOTE | 2021-02-18 12:57 | SUR.OPER ---
Supine on padded OR bed, head on pillow, arms secured on padded arm boards at <90 degrees abduction, legs uncrossed, safety belt at thigh, tape over blanket over lower legs.
[2021-02-18] MEDS: BUPIVACAINE 0.25% (PF) VIAL 30 ML INJ (13:00)
--- NOTE | 2021-02-24 13:37 | PM.OP.1 ---
Operative Date/Time/Diagnoses Date of procedure: 02/18/21 Pre-op diagnosis: left breast mass Post-op diagnosis: same Procedure & Clinicians Procedure: lumpectomy Same procedure as scheduled: Yes Indications: left breast mass biopsy consistent with intraductal papiloma patient requests excision Surgeon: Rao Parrish Operative Notes Findings: 1 cm benign appearing mass excised from areola Specimen(s): other (Left breast mass) Estimated Blood Loss (mL): 10 Procedure in detail: Patient was brought to the operating room placed supine on table. Anesthesia was induced she was intubated with an LMA. She was prepped and draped sterile fashion. Received 2 g of Ancef prior to skin incision. The left breast mass was readily palpable within the areola. A small curvilinear incision was made in the areola of the left breast. The subcutaneous tissue was divided. The mass was identified was approximately 1 cm and the biopsy clip was visible. The mass was grasped dissected out circumferentially and then excised in its entirety passed off the field as specimen. Hemostasis was achieved. Subcutaneous tissue was closed with Vicryl skin sealed with Dermabond. Patient tolerated the procedure well was extubated and transferred to recovery in stable condition. Complications: none Post-operative Condition: stable Disposition: same day surgery
== END 2021-02-18 14:42 | disposition home or self-care (01) ==
PROVIDERS: PCP Student in an Organized Health Care Education/Training Program; Referring Provider Surgery; Visit Provider Surgery
PROC: (CPT 19301; principal; 2021-02-18 12:15)
DX: D24.2 Benign neoplasm of left breast (principal); I10 Essential (primary) hypertension; F32.9 Major depressive disorder, single episode, unspecified; F41.9 Anxiety disorder, unspecified
CPT/HCPCS: 19301; J0690; J1885; J2405; J2704; J3010

== ENCOUNTER → 2021-10-22 08:29 | Outpatient (CLI) | payer OTHER, SELFPAY | PROVIDERS: PCP Student in an Organized Health Care Education/Training Program; Visit Provider Physician Assistant | DX: J02.9 Acute pharyngitis, unspecified (principal) | CPT/HCPCS: 87070 ==

== ENCOUNTER 2022-01-11 14:50 | Observation (INO) | payer OTHER, SELFPAY ==
--- NOTE | 2022-01-11 10:34 | DI.MRI.S_ITS ---
PROCEDURE: MR ABDOMEN WO CON INDICATIONS: MRCP right upper quad pain TECHNIQUE: Coronal HASTE through the abdomen, axial 2-D FLASH in- and [id number], and breath-hold T2 FSE with fat saturation through the biliary system and pancreas. Oblique coronal and axial thin-slice HASTE, radial thick-slab HASTE centered on the extrahepatic bile ducts. Intravenous secretin: Not requested. COMPARISON: [facility], , ABDOMEN LIMITED, 01/11/2022, 17:23. FINDINGS: Image quality: Excellent. Pancreas and biliary system: There is marked gallbladder wall thickening with luminal narrowing at. No gallstone is seen. There is suspected trace pericholecystic fluid. The intrahepatic and extrahepatic bile ducts are normal in size without filling defects. Pancreas is normal in morphology, without adjacent soft tissue edema. Pancreatic duct is normal in caliber, without developmental anomalies. Other solid organs: Liver is normal in size. Spleen is mildly enlarged, measuring 14.5 cm in anterior-posterior dimension. No adrenal nodules. Both kidneys are normal in size, without hydronephrosis. Nodes and vessels: No retroperitoneal or mesenteric adenopathy by size criteria. Aorta and inferior vena cava are normal in size. Bowel and peritoneum: Unenhanced bowel loops are normal in caliber. No free fluid. Lung bases: No basal pleural effusions. Heart size is normal. Bones and soft tissues: No ventral hernias. Bone marrow is of normal overall signal. IMPRESSION: 1. Marked gallbladder wall thickening and trace pericholecystic fluid. No gallstones. Findings are nonspecific and may due to secondary causes such as hepatic disease, hypoalbuminemia, or right heart failure. Less likely, findings could be secondary to acalculous cholecystitis. 2. No biliary ductal dilatation or choledocholithiasis. 3. Mild splenomegaly. Dictated by: Terrence Reynolds M.D. on 01/12/2022 at 11:29 Approved by: Terrence Reynolds M.D. on 01/12/2022 at 11:38
[2022-01-11 14:56] VITALS: BP 135/77; PULSE 116; RESP 22; TEMP 37.4; O2SAT 99
[2022-01-11 16:23] LABS: Appearance Urine UA SL CLOUDY; Bilirubin Urine UA 2+ (NEGATIVE); Color Urine UA YELLOW; Glucose Urine UA TRACE g/dL (Negative); Ketones Urine UA TRACE (NEGATIVE); Leukocyte Esterase Urine UA TRACE (NEGATIVE); Nitrite Urine UA NEGATIVE (Negative); Occult Blood Urine UA NEGATIVE (Negative); Protein Urine UA 1+ (Negative); Urobilinogen Urine UA >=8.0 E.U./dL (0.2)
[2022-01-11 16:27] LABS: pH Urine UA 6.5 (4.5-8.0)
[2022-01-11 16:31] LABS: Amorphous Sediment Urine 1+; Bacteria Urine Few (2-10); Culture Indicated Urine Cult Not Indicated; Ictotest Urine Positive (Negative); RBC Urine None Seen (0-5/HPF); Squamous Epithelial Cell Urine 10-30 /HPF (0-5/HPF); WBC Urine 0-1/HPF (0-5/HPF)
[2022-01-11 16:35] LABS: COVID19 -Nasal RAPID Negative (Negative)
[2022-01-11 16:40] LABS: Alanine Aminotransferase 447 IU/L (<35); Albumin 2.6 g/dL (3.5-5.0); Albumin Globulin Ratio 0.7 (1.0-2.8); Alkaline Phosphatase 301 U/L (38-126); Aspartate Aminotransferase 353 IU/L (14-36); BUN Creatinine Ratio 17.4 (6-22); Bilirubin Total 2.9 mg/dL (0.2-1.3); Blood Urea Nitrogen 12 mg/dL (7-17); Calcium 7.7 mg/dL (8.4-10.2); Carbon Dioxide 27 mmol/L (22-32); Chloride 103 mmol/L (98-107); Estimated Glomerular Filt Rate > 60 mL/min (>60); Globulin 3.5 g/dL (1.7-4.1); Glucose 100 mg/dL (70-100); HEMOLYSIS 24 (0-50); Hematocrit 32.5 % (36-46); Hemoglobin 11.3 g/dL (12.0-16.0); Lipase 141 U/L (23-300); Mean Corpuscular HGB Conc 34.7 % (30-36); Mean Corpuscular Volume 83.5 fL (80-100); Platelet Count 184 X10^3/uL (150-400); Potassium 2.9 mmol/L (3.4-5.1); Red Blood Cell Count 3.89 X10^6/uL (4.0-5.2); Red Cell Distribution Width 14.9 % (11.6-14.8); Sodium 133 mmol/L (137-145); Total Protein 6.1 g/dL (6.3-8.2)
[2022-01-11 16:42] LABS: Add Manual Diff / Slide Review YES
[2022-01-11 17:01] LABS: Neutrophils Absolute Manual 3150 /uL (3000-5900); RBC Morphology Normal Morphology; Total Cells Counted 100
--- NOTE | 2022-01-11 17:04 | ED.NAVMDI ---
HPI - Nausea/Vomiting/Diarrhea General Chief complaint: Nausea/Vomiting/Diarrhea Stated complaint: Fever, Lower Back Pain, Stomach Cramping Time Seen by Provider: 01/11/22 17:04 Source: patient Mode of arrival: Ambulatory Limitations: no limitations History of Present Illness HPI Narrative: This is a 46-year-old female on medication for ADHD and concurrently treated for hypertension. Patient states she traveled to [place] around January 06 she started having fevers, nausea but no vomiting abdominal pain that started in the left lower quadrant but has now localized more to the right upper quadrant, she was having persistent diarrhea and had some bloody diarrhea on her 1st and 2nd day which has since resolved and she is only had 1 or 2 bowel movements since returned [place] the [place] Patient states she is continued to have fevers. Denies cough, cold or congestion. No chest pain or shortness of breath. No syncope. Patient denies dysuria urgency or frequency. Patient states that she received immunizations as a child but is unsure of her hepatitis a or B immunization status. Denies any recent surgeries. Patient's former tobacco user, occasional alcohol, denies any illicit or IV drugs. Related Data Previous Rx's Medication Instructions Recorded acetaminophen 325 mg capsule 650 mg PO QID PRN pain #60 caps 02/18/21 (Tylenol) ibuprofen 200 mg tablet 400 mg PO Q6H #60 tabs 02/18/21 bupropion HCl 150 mg 24 hr tablet, 150 mg PO QAM #90 tabs 04/08/21 extended release lisinopril 20 mg tablet 20 mg PO DAILY #90 tabs 08/27/21 hydrochlorothiazide 25 mg tablet 25 mg PO DAILY #90 tabs 09/30/21 lisdexamfetamine 60 mg capsule 60 mg PO DAILY #30 caps 12/16/21 Allergies Allergy/AdvReac Type Severity Reaction Status Date / Time No Known Drug Allergies Allergy Verified 02/18/21 11:07 Review of Systems Review of Systems ROS Unobtainable: All systems reviewed & are unremarkable except as noted in HPI and below Patient History Medical History ADHD (attention deficit hyperactivity disorder) (2007) Anemia Anxiety and depression (08/25/16) Attention deficit hyperactivity disorder (ADHD) (08/25/16) Bulimia (1993) Chickenpox (1985) Depression (2007) Hypertension Sinus drainage Sleep apnea Stomach ulcer Surgical History History of surgery (12/24/20) Status post delivery (09/10/04) Status post knee surgery Family History Brother Age: 45 Crohn's disease Father Age: 68 Hypertension Mother Age: 65 Hypertension High cholesterol Grandfather Stroke Grandmother Lung cancer Social History household members: friend(s) Smoking Status: Former smoker Tobacco: How many years used: 8 second hand exposure: No alcohol intake: current substance use type: does not use Smoking Status: Former smoker alcohol intake frequency: a few times a week Substance Use Type: does not use Exam Narrative Exam Narrative: GENERAL: Alert and oriented x three, female in mild distress. Patient is slightly diaphoretic. Patient appears ceron from her recent travels but not particularly jaundiced. HEENT: Head normocephalic, atraumatic, EOMI, no scleral icterus. Pupils reactive, face symmetric, moist mucous membranes NECK: Supple, full range of motion CARDIOVASCULAR: Tachycardic but Regular rate and rhythm without murmurs, rubs or gallops. No JVD no swelling lower extremities. RESPIRATORY: Breath sounds equal bilaterally, no wheezes rales or rhonchi. ABDOMEN: Soft, positive for mild right upper quadrant tenderness, patient is nontender on the rest of exam.. Normoactive bowel sounds all 4 quadrants. No guarding or rebound, rigidity, no mass, nondistended. : No CVA tenderness EXTREMITIES: Normal range of motion, no clubbing or edema. Neurovascularly intact NEUROLOGICAL: Cranial nerves II through XII grossly intact. Moving all extremities SKIN: Warm, dry, no petechiae, no rashes or lesions. Initial Vital Signs Initial Vital Signs: Vital Signs Temperature 99.4 F 01/11/22 14:56 Pulse Rate 116 H 01/11/22 14:56 Respiratory Rate 22 01/11/22 14:56 Blood Pressure 135/77 01/11/22 14:56 Pulse Oximetry 99 01/11/22 14:56 Oxygen Delivery Method 01/11/22 14:56 Course Orders Ordered: ED Orders 01/11/22 15:33 COVID19 -Nasal RAPID/Pre-Proc Stat Ictotest Urine Stat Urinalysis and Microscopic Stat 01/11/22 15:50 Complete Blood Count AUTO DIFF Stat Comprehensive Metabolic Panel Stat Lactate (Lactic Acid) Stat Lipase Stat Pathologist Review (for CBC) Stat Procalcitonin Stat 01/11/22 17:07 US abdomen limited Stat 01/11/22 17:13 EKG-12 Lead Stat 01/11/22 17:15 PTT [Partial Thromboplastin Time] Stat Prothrombin Time INR Stat 01/11/22 17:23 Urine Drug Screen, Rapid Stat 01/11/22 18:30 Acetaminophen Stat Blood Culture Stat Hepatitis Acute Panel Stat Discontinued Medications Sodium Chloride (Normal Saline 0.9%) 1,000 mls @ 1,000 mls/hr IV BOLUS ONE Stop: 01/11/22 18:15 Last Admin: 01/11/22 17:54 Dose: 1,000 mls/hr Documented By: BERNY Potassium Chloride (Potassium Chloride 20 Meq Tab) 40 meq PO NOW ONE Stop: 01/11/22 17:14 Last Admin: 01/11/22 17:53 Dose: 40 meq Documented By: BERNY Vital Signs Vital signs: Vital Signs - 8 hr 01/11/22 14:56 01/11/22 17:46 Temperature 99.4 F Pulse Rate 116 H 112 H Respiratory Rate 22 18 Blood Pressure 135/77 115/72 Pulse Oximetry 99 97 Oxygen Delivery Method Room Air Room Air MDM - Nausea/Vomiting/Diarrhea Lab Data Result diagrams: 01/11/22 15:50 01/11/22 15:50 Labs: Lab Results 01/11/22 01/11/22 01/11/22 Range/Units 15:33 15:33 15:50 WBC 9.0 (4.5-11.0) X10^3/uL RBC 3.89 L (4.0-5.2) X10^6/uL Hgb 11.3 L (12.0-16.0) g/dL Hct 32.5 L (36-46) % MCV 83.5 (80-100) fL MCH 29.0 (26-34) PG MCHC 34.7 (30-36) % RDW 14.9 H (11.6-14.8) % Plt Count 184 (150-400) X10^3/uL Neut % (Auto) Not Reportable Lymph % (Auto) Not Reportable Blaine % (Auto) Not Reportable Eos % (Auto) Not Reportable Baso % (Auto) Not Reportable Lymph # (Auto) Not Reportable Blaine # (Auto) Not Reportable Baso # (Auto) Not Reportable Total Counted 100 Seg Neutrophils % 28.0 L (38-70) % Band Neutrophils % 7.0 (3-7) % Lymphocytes % (Manual) 47.0 H (25-45) % Atypical Lymphs % 10.0 H ( - 0) % Monocytes % (Manual) 7.0 (2-11) % Eosinophils % (Manual) 1.0 L (2-4) % Neutrophils # (Manual) 3150 (9954-5737) /uL RBC Morphology Normal morphology PT (10.1-12.7) SECONDS INR (0.9-1.3) APTT (26-36) SECONDS Sodium (137-145) mmol/L Potassium (3.4-5.1) mmol/L Chloride (98-107) mmol/L Carbon Dioxide (22-32) mmol/L BUN (7-17) mg/dL Creatinine (0.52-1.04) mg/dL Estimated GFR (>60) mL/min BUN/Creatinine Ratio (6-22) Glucose (70-100) mg/dL Lactate (0.7-2.1) mmol/L Calcium (8.4-10.2) mg/dL Total Bilirubin (0.2-1.3) mg/dL AST (14-36) IU/L ALT (<35) IU/L Alkaline Phosphatase (38-126) U/L Total Protein (6.3-8.2) g/dL Albumin (3.5-5.0) g/dL Globulin (1.7-4.1) g/dL Albumin/Globulin Ratio (1.0-2.8) Lipase (23-300) U/L Procalcitonin (<0.5) ng/mL Urine Color Yellow Urine Appearance Sl cloudy Urine pH 6.5 (4.5-8.0) Ur Specific Paisley 1.010 (1.000-1.035) Urine Protein 1+ H (Negative) Urine Glucose (UA) Trace H (Negative) g/dL Urine Ketones Trace H (NEGATIVE) Urine Occult Blood Negative (Negative) Urine Nitrate Negative (Negative) Urine Bilirubin 2+ H (NEGATIVE) Ur Bilirubin Confirm Positive H (Negative) Urine Urobilinogen >=8.0 (0.2) E.U./dL Ur Leukocyte Esterase Trace H (NEGATIVE) Urine RBC None seen (0-5/HPF) Urine WBC 0-1/hpf (0-5/HPF) Ur Squamous Epith Cells 10-30 /hpf H (0-5/HPF) Amorphous Sediment 1+ Urine Bacteria Few (2-10) H (None) Ur Culture Indicated? Cult not indicated SARS-CoV-2 (PCR) Negative (Negative) 01/11/22 01/11/22 01/11/22 Range/Units 15:50 15:50 15:50 WBC (4.5-11.0) X10^3/uL RBC (4.0-5.2) X10^6/uL Hgb (12.0-16.0) g/dL Hct (36-46) % MCV (80-100) fL MCH (26-34) PG MCHC (30-36) % RDW (11.6-14.8) % Plt Count (150-400) X10^3/uL Neut % (Auto) Lymph % (Auto) Blaine % (Auto) Eos % (Auto) Baso % (Auto) Lymph # (Auto) Blaine # (Auto) Baso # (Auto) Total Counted Seg Neutrophils % (38-70) % Band Neutrophils % (3-7) % Lymphocytes % (Manual) (25-45) % Atypical Lymphs % ( - 0) % Monocytes % (Manual) (2-11) % Eosinophils % (Manual) (2-4) % Neutrophils # (Manual) (1020-5625) /uL RBC Morphology PT (10.1-12.7) SECONDS INR (0.9-1.3) APTT (26-36) SECONDS Sodium 133 L (137-145) mmol/L Potassium 2.9 L (3.4-5.1) mmol/L Chloride 103 (98-107) mmol/L Carbon Dioxide 27 (22-32) mmol/L BUN 12 (7-17) mg/dL Creatinine 0.69 (0.52-1.04) mg/dL Estimated GFR > 60 (>60) mL/min BUN/Creatinine Ratio 17.4 (6-22) Glucose 100 (70-100) mg/dL Lactate 2.0 (0.7-2.1) mmol/L Calcium 7.7 L (8.4-10.2) mg/dL Total Bilirubin 2.9 H (0.2-1.3) mg/dL AST 353 H (14-36) IU/L ALT 447 H (<35) IU/L Alkaline Phosphatase 301 H (38-126) U/L Total Protein 6.1 L (6.3-8.2) g/dL Albumin 2.6 L (3.5-5.0) g/dL Globulin 3.5 (1.7-4.1) g/dL Albumin/Globulin Ratio 0.7 L (1.0-2.8) Lipase 141 (23-300) U/L Procalcitonin 0.16 (<0.5) ng/mL Urine Color Urine Appearance Urine pH (4.5-8.0) Ur Specific Paisley (1.000-1.035) Urine Protein (Negative) Urine Glucose (UA) (Negative) g/dL Urine Ketones (NEGATIVE) Urine Occult Blood (Negative) Urine Nitrate (Negative) Urine Bilirubin (NEGATIVE) Ur Bilirubin Confirm (Negative) Urine Urobilinogen (0.2) E.U./dL Ur Leukocyte Esterase (NEGATIVE) Urine RBC (0-5/HPF) Urine WBC (0-5/HPF) Ur Squamous Epith Cells (0-5/HPF) Amorphous Sediment Urine Bacteria (None) Ur Culture Indicated? SARS-CoV-2 (PCR) (Negative) 01/11/22 Range/Units 17:15 WBC (4.5-11.0) X10^3/uL RBC (4.0-5.2) X10^6/uL Hgb (12.0-16.0) g/dL Hct (36-46) % MCV (80-100) fL MCH (26-34) PG MCHC (30-36) % RDW (11.6-14.8) % Plt Count (150-400) X10^3/uL Neut % (Auto) Lymph % (Auto) Blaine % (Auto) Eos % (Auto) Baso % (Auto) Lymph # (Auto) Blaine # (Auto) Baso # (Auto) Total Counted Seg Neutrophils % (38-70) % Band Neutrophils % (3-7) % Lymphocytes % (Manual) (25-45) % Atypical Lymphs % ( - 0) % Monocytes % (Manual) (2-11) % Eosinophils % (Manual) (2-4) % Neutrophils # (Manual) (1778-9849) /uL RBC Morphology PT 12.9 H (10.1-12.7) SECONDS INR 1.1 (0.9-1.3) APTT 33 (26-36) SECONDS Sodium (137-145) mmol/L Potassium (3.4-5.1) mmol/L Chloride (98-107) mmol/L Carbon Dioxide (22-32) mmol/L BUN (7-17) mg/dL Creatinine (0.52-1.04) mg/dL Estimated GFR (>60) mL/min BUN/Creatinine Ratio (6-22) Glucose (70-100) mg/dL Lactate (0.7-2.1) mmol/L Calcium (8.4-10.2) mg/dL Total Bilirubin (0.2-1.3) mg/dL AST (14-36) IU/L ALT (<35) IU/L Alkaline Phosphatase (38-126) U/L Total Protein (6.3-8.2) g/dL Albumin (3.5-5.0) g/dL Globulin (1.7-4.1) g/dL Albumin/Globulin Ratio (1.0-2.8) Lipase (23-300) U/L Procalcitonin (<0.5) ng/mL Urine Color Urine Appearance Urine pH (4.5-8.0) Ur Specific Paisley (1.000-1.035) Urine Protein (Negative) Urine Glucose (UA) (Negative) g/dL Urine Ketones (NEGATIVE) Urine Occult Blood (Negative) Urine Nitrate (Negative) Urine Bilirubin (NEGATIVE) Ur Bilirubin Confirm (Negative) Urine Urobilinogen (0.2) E.U./dL Ur Leukocyte Esterase (NEGATIVE) Urine RBC (0-5/HPF) Urine WBC (0-5/HPF) Ur Squamous Epith Cells (0-5/HPF) Amorphous Sediment Urine Bacteria (None) Ur Culture Indicated? SARS-CoV-2 (PCR) (Negative) Point of Care Testing Test Results Negative Imaging Data US - abdomen: Radiologist's Impression: [address] [address] Ultrasound Report Signed Patient: Nataly Parker MR#: [id number] : 1975 Acct:[id number] Age/Sex: 46 / F Date of Service: 01/11/22 Loc: ED Accession Number: [id number] ?? Procedure: US abdomen limited Ordering Provider: Domenica Rand D.O. PROCEDURE:? US ABDOMEN LIMITED ? INDICATIONS:? fever, elevated lfts ? TECHNIQUE:? Real-time scanning was performed of the right upper quadrant organs, with image documentation.? ? COMPARISON:? None. ? FINDINGS:? ? Liver:? Hypoechoic course echogenicity of the liver with decreased through transmission.. Liver measures 16 cm. ? Gallbladder:? No biliary stones or sludge.? There is some trace pericholecystic fluid.? Negative sonographic Flanagan's per wood pile driver operator.? Gallbladder wall measures 4.5 mm. ? Biliary ducts:? Intrahepatic bile ducts are non-dilated.? Extrahepatic bile duct caliber measures 4 mm.? Normal is 6-7 mm or less in diameter, or 10 mm or less post-cholecystectomy.? ? Pancreas:? Visualized portions of the pancreas are sonographically normal.? ? The IVC is patent. ? ? IMPRESSION:? 1. Pericholecystic fluid and wall thickening is nonspecific and can be seen with systemic etiologies with acute cholecystitis not excluded. 2. Decreased echogenicity of the liver with prominent vascularity can be seen in hepatitis. ? Dictated by: Dylan Mendoza M.D. on 01/11/2022 at 16:51 ? ? Approved by: Dylan Mendoza M.D. on 01/11/2022 at 16:57?? ECG Data Attestation: I personally reviewed and interpreted this ECG as follows: Interpretation: Sinus tachycardia rate of 108 RI 156 QRS is 70 QTC of 458. Patient has some Q-waves with T-wave inversion depression in V2, V3 V6. No elevation. No priors for comparison. MDM Narrative Medical decision making narrative: This is a 46-year-old female with history of hypertension and ADHD, patient had recent travel to [place] developed fevers, bloody diarrhea diarrhea has resolved she started with lower abdominal pain which has since moved her right upper quadrant continued to have nausea but no active vomiting and presents today with persistent symptoms since the 06 of January. Patient is afebrile but tachycardic in the department she is not hypotensive, patient's anemic, has hypokalemia but tolerating oral potassium, also has hepatitis suspected possibly hepatitis a with recent travel patient is unsure about her immunization status, but with recent fevers ultrasound ordered she has right upper quadrant tenderness she has fluid thickened wall but no obvious ductal, biliary dilation or stones without stones on ultrasound and some changes to echogenicity consistent with hepatitis. Discussed with General surgery and Medicine with plan for potential or MRCP tomorrow not available tonight, blood culture sent, hepatitis panel was sent but take several days to result. Patient accepted by Dr. Earl for observation. Case also discussed with Dr. Parrish. Discharge Plan Departure Patient Disposition: Admitted as Observation Clinical Impression: Hepatitis, Hypokalemia, Tachycardia Admit Date/Time: 01/11/22 18:13 Admit Provider: Onesimo Earl
--- NOTE | 2022-01-11 17:07 | DI.US.S_ITS ---
PROCEDURE: US ABDOMEN LIMITED INDICATIONS: fever, elevated lfts TECHNIQUE: Real-time scanning was performed of the right upper quadrant organs, with image documentation. COMPARISON: None. FINDINGS: Liver: Hypoechoic course echogenicity of the liver with decreased through transmission.. Liver measures 16 cm. Gallbladder: No biliary stones or sludge. There is some trace pericholecystic fluid. Negative sonographic Flanagan's per high density talc coater operator. Gallbladder wall measures 4.5 mm. Biliary ducts: Intrahepatic bile ducts are non-dilated. Extrahepatic bile duct caliber measures 4 mm. Normal is 6-7 mm or less in diameter, or 10 mm or less post-cholecystectomy. Pancreas: Visualized portions of the pancreas are sonographically normal. The IVC is patent. IMPRESSION: 1. Pericholecystic fluid and wall thickening is nonspecific and can be seen with systemic etiologies with acute cholecystitis not excluded. 2. Decreased echogenicity of the liver with prominent vascularity can be seen in hepatitis. Dictated by: Dylan Mendoza M.D. on 01/11/2022 at 16:51 Approved by: Dylan Mendoza M.D. on 01/11/2022 at 16:57
[2022-01-11 17:46] VITALS: BP 115/72; PULSE 112; RESP 18; O2SAT 97
[2022-01-11] MEDS: POTASSIUM CHLORIDE 20 MEQ TAB 40 MEQ PO (17:53)
[2022-01-11] MEDS: SODIUM CHLORIDE 0.9% 1,000 ML 1000 ML IV (17:54)
[2022-01-11 18:31] LABS: INR 1.1 (0.9-1.3); Prothrombin Time 12.9 SECONDS (10.1-12.7)
[2022-01-11 18:34] LABS: PTT Partial Thromboplastin Tim 33 SECONDS (26-36)
[2022-01-11 18:42] LABS: Procalcitonin 0.16 ng/mL (<0.5)
--- NOTE | 2022-01-11 18:58 | PC.NURSE ---
Day shift: Pt on unit at approx 0650 from ED. SHe is A&Ox4. Denies any nausea. Does reports mild ABD cramping. Steady on her feet. Oriented to room and call light.
[2022-01-11 19:03] LABS: Acetaminophen < 10 ug/mL (10-30)
[2022-01-11 19:11] VITALS: BP 122/74; PULSE 105; O2SAT 94
[2022-01-11 20:24] VITALS: TEMP 36.8
[2022-01-11 20:29] VITALS: BMI 32.1
[2022-01-11 21:42] LABS: UR Morphine/Opiate cutoff 300 Negative (Negative); Ur Creatinine Normal (Normal); Ur Specific Gravity Normal (Normal); Urine Cocaine Negative (Negative); Urine Tetrahydrocannabinol Negative (Negative); Urine pH Normal (Normal)
[2022-01-11 21:43] LABS: Urine Amphetamines Negative (Negative); Urine Barbiturates Negative (Negative); Urine Benzodiazepines Negative (Negative); Urine MDMA Negative (Negative); Urine Methadone Negative (Negative); Urine Methamphetamines Negative (Negative); Urine Oxycodone Negative (Negative); Urine Phencyclidine Negative (Negative); Urine Tricyclic Antidepressant Negative (Negative)
--- NOTE | 2022-01-11 21:49 | P.HP_ITS ---
History of Present Illness History of Present Illness Date Patient Seen: 01/11/22 Time Patient Seen: 21:00 Chief complaint: Fever, Lower Back Pain, Stomach Cramping Narrative: Nataly Parker is a 46-year-old female with hypertension and ADHD with a previous history of some tobacco use, presented to the emergency department earlier today with fevers and nausea. She returned from a trip to [place] about 1 week ago and the fever started about 1 day ago she states it has been as high as 103 normally ranging between [id number]. She denies vomiting but has had nausea particularly worse after eating. She does endorse having abdominal cramping, bloating and orange colored urine that is now turned to brown. She has been drinking as much water she can, while in [place] she did realize that she had eaten some raw vegetables namely let us is that were part of her salads and hamburgers. She denies any diarrhea and in fact his only had to be regular BMs in the past week which is not normal for her. She denies shortness of breath, chest pain, or skin changes. Ultrasound of the abdomen included the following findings:1. Pericholecystic fluid and wall thickening is nonspecific and can be seen with systemic etiologies with acute cholecystitis not excluded.2. Decreased echogenicity of the liver with prominent vascularity can be seen in hepatitis.Due to an initial low potassium of 2.9, she was given oral potassium supplementation along with IV fluids that were started. Currently she is afebrile, blood pressure 122/74, heart rate 105, respiratory rate 18, oxygen saturation 94% on room air she weighs 77.1 kg with a BMI of 32.1. His mildly anemic with a hemoglobin and hematocrit of 11.3 and 32.5 respectively, protime is 12.9, sodium 133, potassium 2.9, calcium 7.7, total bilirubin 2.9, AST 353, ALT 447 alk-phos 301 albumin 2.6 procalcitonin is within normal limits UA indicated detectable bilirubin but does not indicated a urinary tract infection, acetaminophen levels are within normal limits and COVID-19 PCR and viral PCR panels are negative. Patient History Medical History ADHD (attention deficit hyperactivity disorder) (2007) Anemia Anxiety and depression (08/25/16) Attention deficit hyperactivity disorder (ADHD) (08/25/16) Bulimia (1993) Chickenpox (1985) Depression (2007) Hypertension Sinus drainage Sleep apnea Stomach ulcer Surgical History History of surgery (12/24/20) Status post delivery (09/10/04) Status post knee surgery Family & Social History Family History Brother Age: 45 Crohn's disease Father Age: 68 Hypertension Mother Age: 65 Hypertension High cholesterol Grandfather Stroke Grandmother Lung cancer Social History: household members friend(s) Prior Living Arrangements Apartment/Condo Safety & Behavioral: Feels Safe in Current Yes Environment Been Physically Hurt or No Threatened By a Person Tobacco & Substance use: Tobacco type quit Smoking Status former alcohol intake current alcohol intake frequency a few times a week Substance Use Type does not use Meds Home Medications and Allergies Home Medications Medication Instructions Recorded Confirmed Type acetaminophen 325 mg capsule 650 mg PO QID PRN pain #60 caps 02/18/21 01/11/22 Rx (Tylenol) ibuprofen 200 mg tablet 400 mg PO Q6H #60 tabs 02/18/21 01/11/22 Rx lisinopril 20 mg tablet 20 mg PO DAILY #90 tabs 08/27/21 01/11/22 Rx hydrochlorothiazide 25 mg tablet 25 mg PO DAILY #90 tabs 09/30/21 01/11/22 Rx lisdexamfetamine 60 mg capsule 60 mg PO QAM 01/11/22 01/11/22 History (Vyvanse) Allergies Allergy/AdvReac Type Severity Reaction Status Date / Time No Known Drug Allergies Allergy Verified 02/18/21 11:07 Review of Systems Review of Systems ROS: Yes All systems reviewed with the patient and are negative except as otherwise documented Exam Vital Signs (past 8 hours): - 01/11/22 14:56 01/11/22 17:46 01/11/22 19:11 Temperature 99.4 F Pulse Rate 116 H 112 H 105 H Respiratory Rate 22 18 Blood Pressure 135/77 115/72 122/74 Pulse Oximetry 99 97 94 Oxygen Delivery Method Room Air Room Air Oxygen Flow Rate 0 01/11/22 19:56 01/11/22 20:24 Temperature 98.3 F Pulse Rate Respiratory Rate Blood Pressure Pulse Oximetry Oxygen Delivery Method Room Air Oxygen Flow Rate Oxygen Delivery Method Room Air Oxygen Flow Rate 0 Narrative Exam Narrative: Gen: Alert, oriented, well-developed 46 y.o. female, NAD HEENT: normocephalic, atraumatic, conjunctiva clear, sclera icterus, oral mucosa pink and moist Neck: supple, full ROM, no JVD, trachea is midline Resp: Lungs CTA, non-labored breathing CV: RRR, no murmur or rubs Abd: soft, non-tender, normoactive BTs Skin: Appears to have jaundice, no lesions or rashes, dry and intact Neuro: Alert and oriented X 4 w/no focal deficits. Speech clear and coherent. Extremities: moves all 4 extremities, is ambulatory, negative Dionne?s sign Psyche: normal mood and affect. Objective Labs Result Diagrams: 01/11/22 15:50 01/11/22 15:50 Labs: Laboratory Results - last 24 hr 01/11/22 01/11/22 01/11/22 15:33 15:33 15:50 WBC 9.0 RBC 3.89 L Hgb 11.3 L Hct 32.5 L MCV 83.5 MCH 29.0 MCHC 34.7 RDW 14.9 H Plt Count 184 Neut % (Auto) Not Reportable Lymph % (Auto) Not Reportable [place] % (Auto) Not Reportable Eos % (Auto) Not Reportable Baso % (Auto) Not Reportable Lymph # (Auto) Not Reportable [place] # (Auto) Not Reportable Baso # (Auto) Not Reportable Total Counted 100 Seg Neutrophils % 28.0 L Band Neutrophils % 7.0 Lymphocytes % (Manual) 47.0 H Atypical Lymphs % 10.0 H Monocytes % (Manual) 7.0 Eosinophils % (Manual) 1.0 L Neutrophils # (Manual) 3150 RBC Morphology Normal morphology PT INR APTT Sodium Potassium Chloride Carbon Dioxide BUN Creatinine Estimated GFR BUN/Creatinine Ratio Glucose Lactate Calcium Total Bilirubin AST ALT Alkaline Phosphatase Total Protein Albumin Globulin Albumin/Globulin Ratio Lipase Procalcitonin Urine Color Yellow Urine Appearance Sl cloudy Urine pH 6.5 Ur Specific [place] 1.010 Urine Protein 1+ H Urine Glucose (UA) Trace H Urine Ketones Trace H Urine Occult Blood Negative Urine Nitrate Negative Urine Bilirubin 2+ H Ur Bilirubin Confirm Positive H Urine Urobilinogen >=8.0 Ur Leukocyte Esterase Trace H Urine RBC None seen Urine WBC 0-1/hpf Ur Squamous Epith Cells 10-30 /hpf H Amorphous Sediment 1+ Urine Bacteria Few (2-10) H Ur Culture Indicated? Cult not indicated U Opiates 300ng/mL cut Ur Oxycodone Screen Urine Methadone Screen Acetaminophen Ur Barbiturates Screen U Tricyclic Antidepress Ur Phencyclidine Scrn Ur Amphetamines Screen U Methamphetamines Scrn Ur MDMA Scrn (Ecstasy) U Benzodiazepines Scrn Urine Cocaine Screen U Marijuana (THC) Screen SARS-CoV-2 (PCR) Negative 01/11/22 01/11/22 01/11/22 15:50 15:50 15:50 WBC RBC Hgb Hct MCV MCH MCHC RDW Plt Count Neut % (Auto) Lymph % (Auto) [place] % (Auto) Eos % (Auto) Baso % (Auto) Lymph # (Auto) [place] # (Auto) Baso # (Auto) Total Counted Seg Neutrophils % Band Neutrophils % Lymphocytes % (Manual) Atypical Lymphs % Monocytes % (Manual) Eosinophils % (Manual) Neutrophils # (Manual) RBC Morphology PT INR APTT Sodium 133 L Potassium 2.9 L Chloride 103 Carbon Dioxide 27 BUN 12 Creatinine 0.69 Estimated GFR > 60 BUN/Creatinine Ratio 17.4 Glucose 100 Lactate 2.0 Calcium 7.7 L Total Bilirubin 2.9 H AST 353 H ALT 447 H Alkaline Phosphatase 301 H Total Protein 6.1 L Albumin 2.6 L Globulin 3.5 Albumin/Globulin Ratio 0.7 L Lipase 141 Procalcitonin 0.16 Urine Color Urine Appearance Urine pH Ur Specific [place] Urine Protein Urine Glucose (UA) Urine Ketones Urine Occult Blood Urine Nitrate Urine Bilirubin Ur Bilirubin Confirm Urine Urobilinogen Ur Leukocyte Esterase Urine RBC Urine WBC Ur Squamous Epith Cells Amorphous Sediment Urine Bacteria Ur Culture Indicated? U Opiates 300ng/mL cut Ur Oxycodone Screen Urine Methadone Screen Acetaminophen Ur Barbiturates Screen U Tricyclic Antidepress Ur Phencyclidine Scrn Ur Amphetamines Screen U Methamphetamines Scrn Ur MDMA Scrn (Ecstasy) U Benzodiazepines Scrn Urine Cocaine Screen U Marijuana (THC) Screen SARS-CoV-2 (PCR) 01/11/22 01/11/22 01/11/22 16:58 17:15 18:30 WBC RBC Hgb Hct MCV MCH MCHC RDW Plt Count Neut % (Auto) Lymph % (Auto) [place] % (Auto) Eos % (Auto) Baso % (Auto) Lymph # (Auto) [place] # (Auto) Baso # (Auto) Total Counted Seg Neutrophils % Band Neutrophils % Lymphocytes % (Manual) Atypical Lymphs % Monocytes % (Manual) Eosinophils % (Manual) Neutrophils # (Manual) RBC Morphology PT 12.9 H INR 1.1 APTT 33 Sodium Potassium Chloride Carbon Dioxide BUN Creatinine Estimated GFR BUN/Creatinine Ratio Glucose Lactate Calcium Total Bilirubin AST ALT Alkaline Phosphatase Total Protein Albumin Globulin Albumin/Globulin Ratio Lipase Procalcitonin Urine Color Urine Appearance Urine pH Ur Specific [place] Urine Protein Urine Glucose (UA) Urine Ketones Urine Occult Blood Urine Nitrate Urine Bilirubin Ur Bilirubin Confirm Urine Urobilinogen Ur Leukocyte Esterase Urine RBC Urine WBC Ur Squamous Epith Cells Amorphous Sediment Urine Bacteria Ur Culture Indicated? U Opiates 300ng/mL cut Negative Ur Oxycodone Screen Negative Urine Methadone Screen Negative Acetaminophen < 10 Ur Barbiturates Screen Negative U Tricyclic Antidepress Negative Ur Phencyclidine Scrn Negative Ur Amphetamines Screen Negative U Methamphetamines Scrn Negative Ur MDMA Scrn (Ecstasy) Negative U Benzodiazepines Scrn Negative Urine Cocaine Screen Negative U Marijuana (THC) Screen Negative SARS-CoV-2 (PCR) Assessment & Plan Assessment & Plan narrative: Nataly Parker is placed into observation for further evaluation of fevers, nausea, and elevated liver functions suspicious of hepatitis A. Findings on CT also indicate she may have an active acute cholecystitis and the plan is for her to undergo MRCP in the morning. Elevated transaminases, acute, present on admission * Acute hepatitis panel has been drawn and pending Metabolic abnormalities, likely acute due to dehydration, present on admission * She is started on IV fluids and was given supplemental potassium in the emergency department Suspected acute cholecystitis, present on admission * General surgery has been consulted and they plan to do an MRCP tomorrow VTE Prophylaxis: Wells risk score 0 Enoxaparin 40 mg subQ once daily Bilateral SCDs Patient is placed into observation as her stay is not expected to exceed 2 midnights. FEN: IV fluids: saline lock, diet: advanced as tolerated to a regular diet, encourage PO fluid intake, labs: CBC, C/BMP, liver enzymes, Mag, PT/INR Consultants Dr. Parrish, General Surger care and involvement in the patient?s care is appreciated. Dispo: hopeful d/c to home tomorrow. Code status: Full code as discussed with the patient who identifies her mother, Heide Carrillo as her surrogate and POA. [X] I have utilized all available immediate resources to obtain, update, or review of the patient's current medications VTE Deep Vein Thrombosis/Pulmonary Embolism Present on Admission: No MIPS - Admit I confirm the patient?s Advance Care Plan is present, Code status is documented, Surrogate decision maker is in patient?s record [If Yes, STOP here]: Yes MIPS - DC The patient has current or prior documentation of left ventricular ejection fraction (LVEF) less than 40%, or moderate or severely depressed left ventricular systolic function.: No COVID-19 COVID-19 status: Negative Result date/Date tested (Pos, Neg/Pending): 01/11/22
[2022-01-12] VITALS: BP 118/72; PULSE 104; RESP 12; TEMP 37.2; O2SAT 95
--- NOTE | 2022-01-12 04:39 | PC.NURSE ---
Pt stating feet are on fire, tingling in feet and cramping in abdomen. Pt requested tylenol. RN gave tylenol and ice pack for feet.
[2022-01-12] MEDS: ACETAMINOPHEN 325 MG TABLET 975 MG PO ×2 (04:48→14:53)
[2022-01-12 04:49] VITALS: BP 129/82; PULSE 109; TEMP 37.1; O2SAT 97
[2022-01-12 06:34] LABS: Alanine Aminotransferase 364 IU/L (<35); Albumin 2.4 g/dL (3.5-5.0); Albumin Globulin Ratio 0.8 (1.0-2.8); Alkaline Phosphatase 295 U/L (38-126); Aspartate Aminotransferase 264 IU/L (14-36); BUN Creatinine Ratio 21.7 (6-22); Bilirubin Conjugated 0.7 md/dL (0.0-0.3); Bilirubin Total 2.8 mg/dL (0.2-1.3); Bilirubin Unconjugated 0.6 mg/dL (0.0-1.1); Blood Urea Nitrogen 13 mg/dL (7-17); Calcium 7.6 mg/dL (8.4-10.2); Carbon Dioxide 26 mmol/L (22-32); Chloride 105 mmol/L (98-107); Estimated Glomerular Filt Rate > 60 mL/min (>60); Globulin 3.2 g/dL (1.7-4.1); Glucose 113 mg/dL (70-100); HEMOLYSIS < 15 (0-50); Sodium 134 mmol/L (137-145); Total Protein 5.6 g/dL (6.3-8.2)
[2022-01-12 06:45] LABS: Hemoglobin A1C% w Est Avg Glu 4.8 % (4.0-6.0)
[2022-01-12 06:59] LABS: Magnesium 1.8 mg/dL (1.6-2.3)
[2022-01-12 07:07] LABS: Hematocrit 30.4 % (36-46); Hemoglobin 10.5 g/dL (12.0-16.0); Mean Corpuscular HGB Conc 34.7 % (30-36); Mean Corpuscular Volume 83.7 fL (80-100); Platelet Count 177 X10^3/uL (150-400); Red Blood Cell Count 3.64 X10^6/uL (4.0-5.2); Red Cell Distribution Width 14.7 % (11.6-14.8); White Blood Cell Count 9.2 X10^3/uL (4.5-11.0)
[2022-01-12 07:11] LABS: Add Manual Diff / Slide Review YES
[2022-01-12 07:39] LABS: Neutrophils Absolute Manual 3404 /uL (3000-5900); Total Cells Counted 100
[2022-01-12 07:42] LABS: Smudge Cells 1+
[2022-01-12 08:00] VITALS: BP 121/77; PULSE 91; RESP 18; TEMP 36.1; O2SAT 99
[2022-01-12] MEDS: SODIUM CHLORIDE 0.9% FLUSH 10 ML IV ×2 (09:45→19:36)
[2022-01-12] MEDS: ENOXAPARIN 40 MG/0.4 ML SYRINGE SUBCUT (09:45)
[2022-01-12 11:59] VITALS: BP 136/87; PULSE 96; RESP 17; TEMP 36.4; O2SAT 98
--- NOTE | 2022-01-12 12:41 | CM.DANOTE ---
DCP: Case received, EMR reviewed and met with patient. Introduced self and role. Was able to obtain some health information from patient prior to admission. DCP assessment completed with [id number] currently available. Patient is a 46 year old female who admitted yesterday afternoon to the care of the hospitalist team. PCP: Dr. Cruz. Payer: confirmed: [employer] Patient came to the hospital via private vehicle secondary to having abdominal pain that started in her left lower quadrant. Patient had also been febrile. According to notes, patient had recently just came back from [place]. Patient is here to be monitored for possible hepatitis A, as well as acute cholecystitis. Met with patient in her room. She was up ambulating in her room, she is alert and oriented, and resides here in [place]. She resides with friends, is . She is employed at [employer]. Patient indicated that she had recently been in [place], came back a few days ago. P: DCP to continue to follow. Patient should be able to go home when she is deemed medically stable. Mariposa Duenas RN/Director Of Bands Discharge Planning/Care Management CM Discharge Assessment Start: 01/12/22 12:38 Freq: Status: Active Protocol: Document 01/12/22 12:38 (Rec: 01/12/22 12:41 [id number]) Discharge Planning Assessment Assigned Health Insurance Agent Mariposa Duenas RN/Director Of Bands Advance Directives? No History Provided By Patient,Medical Record Prior Living Arrangements Apartment/Condo Household Members friend(s) Type of transporation used prior to Drives own vehicle admit Independent with ADL's Yes Is patient alert and oriented? Yes Caregiver for Another No Barriers to Discharge No Discharge Plan Home Transportation Arrangement Friends Referrals Initiated None needed Whiteboard Updated in Patient Room with Yes name and ext. # of Health Insurance Agent Review Status In Process Next Review Type Continued Stay Review
--- NOTE | 2022-01-12 14:27 | P.PN_ITS ---
Subjective Subjective Date Patient Seen: 01/12/22 Interval history: Continues to have fever, not tolerating much oral intake today. She feels intermittent chills and body aches. She denies any diarrhea. Exam Vital Signs (past 8 hours): - 01/12/22 08:00 01/12/22 08:00 01/12/22 11:59 Temperature 97.0 F L 97.5 F L Pulse Rate 91 H 96 H Respiratory Rate 18 17 Blood Pressure 121/77 136/87 Pulse Oximetry 99 98 Oxygen Delivery Method Room Air Oxygen Flow Rate 0 0 Oxygen Delivery Method Room Air Oxygen Flow Rate 0 Narrative Exam Narrative: Gen: Alert, oriented, well-developed 46 y.o. female, NAD HEENT: normocephalic, atraumatic, conjunctiva clear, sclera icterus, oral mucosa pink and moist Neck: supple, full ROM, no JVD, trachea is midline Resp: Lungs CTA, non-labored breathing CV: RRR, no murmur or rubs Abd: soft, non-tender, normoactive BTs Skin: Appears to have jaundice, no lesions or rashes, dry and intact Neuro: Alert and oriented X 4 w/no focal deficits. Speech clear and coherent. Extremities: moves all 4 extremities, is ambulatory, negative Dionne?s sign Psyche: normal mood and affect. Objective Labs Result Diagrams: 01/12/22 06:00 01/12/22 06:00 Labs: Laboratory Results - last 24 hr 01/11/22 01/11/22 01/11/22 15:33 15:33 15:50 WBC 9.0 RBC 3.89 L Hgb 11.3 L Hct 32.5 L MCV 83.5 MCH 29.0 MCHC 34.7 RDW 14.9 H Plt Count 184 Neut % (Auto) Not Reportable Lymph % (Auto) Not Reportable Sharp % (Auto) Not Reportable Eos % (Auto) Not Reportable Baso % (Auto) Not Reportable Lymph # (Auto) Not Reportable Sharp # (Auto) Not Reportable Baso # (Auto) Not Reportable Total Counted 100 Seg Neutrophils % 28.0 L Band Neutrophils % 7.0 Lymphocytes % (Manual) 47.0 H Atypical Lymphs % 10.0 H Monocytes % (Manual) 7.0 Eosinophils % (Manual) 1.0 L Metamyelocytes % Myelocytes % Neutrophils # (Manual) 3150 Smudge Cells RBC Morphology Normal morphology PT INR APTT Sodium Potassium Chloride Carbon Dioxide BUN Creatinine Estimated GFR BUN/Creatinine Ratio Glucose Hemoglobin A1c Lactate Calcium Magnesium Total Bilirubin Conjugated Bilirubin Unconjugated Bilirubin AST ALT Alkaline Phosphatase Total Protein Albumin Globulin Albumin/Globulin Ratio Lipase Procalcitonin Urine Color Yellow Urine Appearance Sl cloudy Urine pH 6.5 Ur Specific [place] 1.010 Urine Protein 1+ H Urine Glucose (UA) Trace H Urine Ketones Trace H Urine Occult Blood Negative Urine Nitrate Negative Urine Bilirubin 2+ H Ur Bilirubin Confirm Positive H Urine Urobilinogen >=8.0 Ur Leukocyte Esterase Trace H Urine RBC None seen Urine WBC 0-1/hpf Ur Squamous Epith Cells 10-30 /hpf H Amorphous Sediment 1+ Urine Bacteria Few (2-10) H Ur Culture Indicated? Cult not indicated U Opiates 300ng/mL cut Ur Oxycodone Screen Urine Methadone Screen Acetaminophen Ur Barbiturates Screen U Tricyclic Antidepress Ur Phencyclidine Scrn Ur Amphetamines Screen U Methamphetamines Scrn Ur MDMA Scrn (Ecstasy) U Benzodiazepines Scrn Urine Cocaine Screen U Marijuana (THC) Screen SARS-CoV-2 (PCR) Negative 01/11/22 01/11/22 01/11/22 15:50 15:50 15:50 WBC RBC Hgb Hct MCV MCH MCHC RDW Plt Count Neut % (Auto) Lymph % (Auto) Sharp % (Auto) Eos % (Auto) Baso % (Auto) Lymph # (Auto) Sharp # (Auto) Baso # (Auto) Total Counted Seg Neutrophils % Band Neutrophils % Lymphocytes % (Manual) Atypical Lymphs % Monocytes % (Manual) Eosinophils % (Manual) Metamyelocytes % Myelocytes % Neutrophils # (Manual) Smudge Cells RBC Morphology PT INR APTT Sodium 133 L Potassium 2.9 L Chloride 103 Carbon Dioxide 27 BUN 12 Creatinine 0.69 Estimated GFR > 60 BUN/Creatinine Ratio 17.4 Glucose 100 Hemoglobin A1c Lactate 2.0 Calcium 7.7 L Magnesium Total Bilirubin 2.9 H Conjugated Bilirubin Unconjugated Bilirubin AST 353 H ALT 447 H Alkaline Phosphatase 301 H Total Protein 6.1 L Albumin 2.6 L Globulin 3.5 Albumin/Globulin Ratio 0.7 L Lipase 141 Procalcitonin 0.16 Urine Color Urine Appearance Urine pH Ur Specific [place] Urine Protein Urine Glucose (UA) Urine Ketones Urine Occult Blood Urine Nitrate Urine Bilirubin Ur Bilirubin Confirm Urine Urobilinogen Ur Leukocyte Esterase Urine RBC Urine WBC Ur Squamous Epith Cells Amorphous Sediment Urine Bacteria Ur Culture Indicated? U Opiates 300ng/mL cut Ur Oxycodone Screen Urine Methadone Screen Acetaminophen Ur Barbiturates Screen U Tricyclic Antidepress Ur Phencyclidine Scrn Ur Amphetamines Screen U Methamphetamines Scrn Ur MDMA Scrn (Ecstasy) U Benzodiazepines Scrn Urine Cocaine Screen U Marijuana (THC) Screen SARS-CoV-2 (PCR) 01/11/22 01/11/22 01/11/22 16:58 17:15 18:30 WBC RBC Hgb Hct MCV MCH MCHC RDW Plt Count Neut % (Auto) Lymph % (Auto) Sharp % (Auto) Eos % (Auto) Baso % (Auto) Lymph # (Auto) Sharp # (Auto) Baso # (Auto) Total Counted Seg Neutrophils % Band Neutrophils % Lymphocytes % (Manual) Atypical Lymphs % Monocytes % (Manual) Eosinophils % (Manual) Metamyelocytes % Myelocytes % Neutrophils # (Manual) Smudge Cells RBC Morphology PT 12.9 H INR 1.1 APTT 33 Sodium Potassium Chloride Carbon Dioxide BUN Creatinine Estimated GFR BUN/Creatinine Ratio Glucose Hemoglobin A1c Lactate Calcium Magnesium Total Bilirubin Conjugated Bilirubin Unconjugated Bilirubin AST ALT Alkaline Phosphatase Total Protein Albumin Globulin Albumin/Globulin Ratio Lipase Procalcitonin Urine Color Urine Appearance Urine pH Ur Specific [place] Urine Protein Urine Glucose (UA) Urine Ketones Urine Occult Blood Urine Nitrate Urine Bilirubin Ur Bilirubin Confirm Urine Urobilinogen Ur Leukocyte Esterase Urine RBC Urine WBC Ur Squamous Epith Cells Amorphous Sediment Urine Bacteria Ur Culture Indicated? U Opiates 300ng/mL cut Negative Ur Oxycodone Screen Negative Urine Methadone Screen Negative Acetaminophen < 10 Ur Barbiturates Screen Negative U Tricyclic Antidepress Negative Ur Phencyclidine Scrn Negative Ur Amphetamines Screen Negative U Methamphetamines Scrn Negative Ur MDMA Scrn (Ecstasy) Negative U Benzodiazepines Scrn Negative Urine Cocaine Screen Negative U Marijuana (THC) Screen Negative SARS-CoV-2 (PCR) 01/12/22 01/12/22 01/12/22 06:00 06:00 06:00 WBC 9.2 RBC 3.64 L Hgb 10.5 L Hct 30.4 L MCV 83.7 MCH 29.0 MCHC 34.7 RDW 14.7 Plt Count 177 Neut % (Auto) Not Reportable Lymph % (Auto) Not Reportable Sharp % (Auto) Not Reportable Eos % (Auto) Not Reportable Baso % (Auto) Not Reportable Lymph # (Auto) Not Reportable Sharp # (Auto) Not Reportable Baso # (Auto) Not Reportable Total Counted 100 Seg Neutrophils % 35.0 L Band Neutrophils % 2.0 L Lymphocytes % (Manual) 53.0 H Atypical Lymphs % 4.0 H Monocytes % (Manual) 4.0 Eosinophils % (Manual) Metamyelocytes % 1.0 H Myelocytes % 1.0 H Neutrophils # (Manual) 3404 Smudge Cells 1+ H RBC Morphology See below PT INR APTT Sodium 134 L Potassium 3.0 L Chloride 105 Carbon Dioxide 26 BUN 13 Creatinine 0.60 Estimated GFR > 60 BUN/Creatinine Ratio 21.7 Glucose 113 H Hemoglobin A1c 4.8 Lactate Calcium 7.6 L Magnesium Total Bilirubin 2.8 H Conjugated Bilirubin 0.7 H Unconjugated Bilirubin 0.6 AST 264 H ALT 364 H Alkaline Phosphatase 295 H Total Protein 5.6 L Albumin 2.4 L Globulin 3.2 Albumin/Globulin Ratio 0.8 L Lipase Procalcitonin Urine Color Urine Appearance Urine pH Ur Specific [place] Urine Protein Urine Glucose (UA) Urine Ketones Urine Occult Blood Urine Nitrate Urine Bilirubin Ur Bilirubin Confirm Urine Urobilinogen Ur Leukocyte Esterase Urine RBC Urine WBC Ur Squamous Epith Cells Amorphous Sediment Urine Bacteria Ur Culture Indicated? U Opiates 300ng/mL cut Ur Oxycodone Screen Urine Methadone Screen Acetaminophen Ur Barbiturates Screen U Tricyclic Antidepress Ur Phencyclidine Scrn Ur Amphetamines Screen U Methamphetamines Scrn Ur MDMA Scrn (Ecstasy) U Benzodiazepines Scrn Urine Cocaine Screen U Marijuana (THC) Screen SARS-CoV-2 (PCR) 01/12/22 06:00 WBC RBC Hgb Hct MCV MCH MCHC RDW Plt Count Neut % (Auto) Lymph % (Auto) Sharp % (Auto) Eos % (Auto) Baso % (Auto) Lymph # (Auto) Sharp # (Auto) Baso # (Auto) Total Counted Seg Neutrophils % Band Neutrophils % Lymphocytes % (Manual) Atypical Lymphs % Monocytes % (Manual) Eosinophils % (Manual) Metamyelocytes % Myelocytes % Neutrophils # (Manual) Smudge Cells RBC Morphology PT INR APTT Sodium Potassium Chloride Carbon Dioxide BUN Creatinine Estimated GFR BUN/Creatinine Ratio Glucose Hemoglobin A1c Lactate Calcium Magnesium 1.8 Total Bilirubin Conjugated Bilirubin Unconjugated Bilirubin AST ALT Alkaline Phosphatase Total Protein Albumin Globulin Albumin/Globulin Ratio Lipase Procalcitonin Urine Color Urine Appearance Urine pH Ur Specific [place] Urine Protein Urine Glucose (UA) Urine Ketones Urine Occult Blood Urine Nitrate Urine Bilirubin Ur Bilirubin Confirm Urine Urobilinogen Ur Leukocyte Esterase Urine RBC Urine WBC Ur Squamous Epith Cells Amorphous Sediment Urine Bacteria Ur Culture Indicated? U Opiates 300ng/mL cut Ur Oxycodone Screen Urine Methadone Screen Acetaminophen Ur Barbiturates Screen U Tricyclic Antidepress Ur Phencyclidine Scrn Ur Amphetamines Screen U Methamphetamines Scrn Ur MDMA Scrn (Ecstasy) U Benzodiazepines Scrn Urine Cocaine Screen U Marijuana (THC) Screen SARS-CoV-2 (PCR) [facility] Medical History ADHD (attention deficit hyperactivity disorder) (2007) Anemia Anxiety and depression (08/25/16) Attention deficit hyperactivity disorder (ADHD) (08/25/16) Bulimia (1993) Chickenpox (1985) Depression (2007) Hypertension Sinus drainage Sleep apnea Stomach ulcer Surgical History History of surgery (12/24/20) Status post delivery (09/10/04) Status post knee surgery Family History Brother Age: 45 Crohn's disease Father Age: 68 Hypertension Mother Age: 65 Hypertension High cholesterol Grandfather Stroke Grandmother Lung cancer Social History household members: friend(s) Smoking Status: Current every day smoker Tobacco: How many years used: 8 second hand exposure: No alcohol intake: current substance use type: does not use Assessment & Plan Assessment & Plan narrative: This is a 46 year old female who returned recently from a trip to [place] with fatigue, recurrent fever, joint pains and marked hepatitis with splenomegaly noted on MRCP. 1. Acute hepatitis with splenomegaly, recurrent fever after travel - marked elevation in AST, ALT, and bilirubin, though improving today - MRCP performed given abdominal ultrasound which showed GBWT and trace pericholecystic fluid. This was also seen on MRCP but no obstruction or gallstones were visualized, this likely represents sequelae of hepatic inflammation at this time. - advance diet as tolerated, continue symptom control - send brucellosis antibodies given recent travel, symptoms, and hepatitis with splenomegaly. - blood and urine cultures pending. - hepatitis serologies pending, suspicion would be for hepatitis A at this time. 2. HTN - continue home medications. Code: Full DVT: Lovenox Dispo: remains observation, anticipate discharge home in 1-2 days if LFTs improving and patient's symptoms improve. COVID-19 COVID-19 status: Negative Result date/Date tested (Pos, Neg/Pending): 01/11/22 Time Spent With Patient Critical Care time: I spent a total of [] minutes of critical care time on this patient's care today; this time is exclusive of procedural time.
[2022-01-12] MEDS: POTASSIUM CHLORIDE 20 MEQ TAB 40 MEQ PO ×2 (14:52→19:53)
[2022-01-12 16:00] VITALS: BP 117/74; PULSE 102; RESP 16; O2SAT 97
[2022-01-12 19:30] VITALS: BP 110/65; PULSE 96; RESP 18; TEMP 36.3; O2SAT 97
[2022-01-12] MEDS: ONDANSETRON 4 MG/2 ML INJ IV (19:36)
[2022-01-13] VITALS (8 sets, daily range): BP systolic 101–128; BP diastolic 56–80; PULSE 92–108; RESP 16–18; TEMP 36.1–37.1; O2SAT 95–98
[2022-01-13] MEDS: ACETAMINOPHEN 325 MG TABLET 975 MG PO ×2 (00:45→12:59)
--- NOTE | 2022-01-13 03:05 | PC.NURSE ---
Pt stating feet on fire and tingling, back pain, and abdominal pain. Pt handling pain well with tylenol PRN. 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 PT AOx4, independent, pleasant and cooperative with care.
[2022-01-13 06:13] LABS: HBsAg Screen Negative (Negative); Hepatitis A Antibody IgM Negative (Negative); Hepatitis B Core Antibody IgM Negative (Negative); Hepatitis C Antibody <0.1 s/co ratio (0.0-0.9)
[2022-01-13 06:20] LABS: Hematocrit 31.1 % (36-46); Hemoglobin 10.6 g/dL (12.0-16.0); Mean Corpuscular Hemoglobin 28.6 PG (26-34); Mean Corpuscular Volume 84.3 fL (80-100); Platelet Count 171 X10^3/uL (150-400); Red Blood Cell Count 3.69 X10^6/uL (4.0-5.2); White Blood Cell Count 8.8 X10^3/uL (4.5-11.0)
[2022-01-13 06:30] LABS: Alanine Aminotransferase 279 IU/L (<35); Albumin 2.2 g/dL (3.5-5.0); Albumin Globulin Ratio 0.7 (1.0-2.8); Alkaline Phosphatase 291 U/L (38-126); Aspartate Aminotransferase 182 IU/L (14-36); Bilirubin Conjugated 0.3 md/dL (0.0-0.3); Bilirubin Total 2.3 mg/dL (0.2-1.3); Bilirubin Unconjugated 0.6 mg/dL (0.0-1.1); Globulin 3.2 g/dL (1.7-4.1); HEMOLYSIS < 15 (0-50); Total Protein 5.4 g/dL (6.3-8.2)
[2022-01-13 06:50] LABS: Add Manual Diff / Slide Review YES
[2022-01-13 06:54] LABS: Neutrophils Absolute Manual 3080 /uL (3000-5900); Total Cells Counted 100
[2022-01-13 06:55] LABS: Anisocytosis 1+; Smudge Cells 1+
--- NOTE | 2022-01-13 07:54 | P.PN_ITS ---
Subjective Subjective Date Patient Seen: 01/13/22 Time Patient Seen: 07:40 Interval history: Feeling better each day. Less jaundice. No nausea vomiting. No fever or chills. No abdominal pain. Exam Vital Signs (past 8 hours): - 01/13/22 00:53 01/13/22 00:00 01/13/22 04:00 Temperature 98.8 F Pulse Rate 108 H Respiratory Rate 18 Blood Pressure 102/80 Pulse Oximetry 97 Oxygen Delivery Method Room Air Room Air Oxygen Flow Rate 0 01/13/22 04:56 Temperature 97.2 F L Pulse Rate 92 H Respiratory Rate 18 Blood Pressure 106/56 L Pulse Oximetry 97 Oxygen Delivery Method Oxygen Flow Rate 0 Oxygen Delivery Method Room Air Oxygen Flow Rate 0 Narrative Exam Narrative: Gen: Alert, oriented, well-developed ? female, appears her stated age of 46, NAD HEENT: normocephalic, atraumatic, conjunctiva clear, sclera icterus, oral mucosa pink and moist, head normocephalic. Neck: supple, full ROM, no JVD, trachea is midline Resp: Lungs clear to auscultation. No wheezes or crackles. Adequate air entry throughout the lung landry. CV: Normal rhythm. S1-S2. No extra sounds, no murmur or rubs Abd: soft, non-tender, bowel sounds normal. Skin:? Appears to have jaundice, no lesions or rashes, dry and intact Neuro: Alert and oriented X 4 w/no focal deficits. Speech clear and coherent. No localized neurological findings. Extremities: moves all 4 extremities, is ambulatory, negative Dionne?s sign Psyche: normal mood and affect. Objective Labs Result Diagrams: 01/13/22 06:04 01/12/22 06:00 Labs: Laboratory Results - last 24 hr 01/11/22 01/13/22 01/13/22 18:30 06:04 06:04 WBC 8.8 RBC 3.69 L Hgb 10.6 L Hct 31.1 L MCV 84.3 MCH 28.6 MCHC 34.0 RDW 15.0 H Plt Count 171 Neut % (Auto) Slitter Creaser Slotter Operator Lymph % (Auto) Slitter Creaser Slotter Operator [place] % (Auto) Slitter Creaser Slotter Operator Eos % (Auto) Slitter Creaser Slotter Operator Baso % (Auto) Slitter Creaser Slotter Operator Neut # (Auto) Slitter Creaser Slotter Operator Lymph # (Auto) Slitter Creaser Slotter Operator [place] # (Auto) Slitter Creaser Slotter Operator Eos # (Auto) Slitter Creaser Slotter Operator Baso # (Auto) Slitter Creaser Slotter Operator Total Counted 100 Seg Neutrophils % 34.0 L Band Neutrophils % 1.0 L Lymphocytes % (Manual) 56.0 H Atypical Lymphs % 3.0 H Monocytes % (Manual) 6.0 Neutrophils # (Manual) 3080 Smudge Cells 1+ H RBC Morphology See below Anisocytosis 1+ H Magnesium Total Bilirubin 2.3 H Conjugated Bilirubin 0.3 Unconjugated Bilirubin 0.6 AST 182 H ALT 279 H Alkaline Phosphatase 291 H Total Protein 5.4 L Albumin 2.2 L Globulin 3.2 Albumin/Globulin Ratio 0.7 L Hepatitis A IgM Ab Negative Hep Bs Antigen Negative Hep B Core IgM Ab Negative Hepatitis C Antibody <0.1 Hep C Ab Signal/Cutoff Comment 01/13/22 06:04 WBC RBC Hgb Hct MCV MCH MCHC RDW Plt Count Neut % (Auto) Lymph % (Auto) [place] % (Auto) Eos % (Auto) Baso % (Auto) Neut # (Auto) Lymph # (Auto) [place] # (Auto) Eos # (Auto) Baso # (Auto) Total Counted Seg Neutrophils % Band Neutrophils % Lymphocytes % (Manual) Atypical Lymphs % Monocytes % (Manual) Neutrophils # (Manual) Smudge Cells RBC Morphology Anisocytosis Magnesium 2.0 Total Bilirubin Conjugated Bilirubin Unconjugated Bilirubin AST ALT Alkaline Phosphatase Total Protein Albumin Globulin Albumin/Globulin Ratio Hepatitis A IgM Ab Hep Bs Antigen Hep B Core IgM Ab Hepatitis C Antibody Hep C Ab Signal/Cutoff [facility] Medical History ADHD (attention deficit hyperactivity disorder) (2007) Anemia Anxiety and depression (08/25/16) Attention deficit hyperactivity disorder (ADHD) (08/25/16) Bulimia (1993) Chickenpox (1985) Depression (2007) Hypertension Sinus drainage Sleep apnea Stomach ulcer Surgical History History of surgery (12/24/20) Status post delivery (09/10/04) Status post knee surgery Family History Brother Age: 45 Crohn's disease Father Age: 68 Hypertension Mother Age: 65 Hypertension High cholesterol Grandfather Stroke Grandmother Lung cancer Social History household members: friend(s) Smoking Status: Current every day smoker Tobacco: How many years used: 8 second hand exposure: No alcohol intake: current substance use type: does not use Assessment & Plan Assessment & Plan narrative: This is a 46 year old female who returned recently from a trip to [place] with fatigue, recurrent fever, joint pains and marked hepatitis with splenomegaly noted on MRCP. 1. Acute hepatitis with splenomegaly, recurrent fever after travel Liver function tests continue to improve. On this admission, MRCP performed given abdominal ultrasound which showed GBWT and trace pericholecystic fluid. This was also seen on MRCP but no obstruction or gallstones were visualized, this likely represents sequelae of hepatic inflammation. Advancing diet as tolerated, continue symptom control Brucellosis antibodies given recent travel, symptoms, and hepatitis with splenomegaly. Blood and urine cultures are unremarkable. ?Hepatitis serologies, suspicion would be for hepatitis A but hepatitis A tests are negative. Due to elevated liver enzymes and enlarged spleen will test for mono. Unlikely in someone over age 40 however it needs to be clarified. 2. HTN ?Continue home medications. Stable. Code: Full DVT: Lovenox Dispo: remains observation, anticipate discharge home in 1 day if LFTs improving and patient's symptoms improve. May not fully identify cause of hepatitis but likely a virus. Time Spent With Patient Critical Care time: I spent a total of [] minutes of critical care time on this patient's care today; this time is exclusive of procedural time.
[2022-01-13] MEDS: SODIUM CHLORIDE 0.9% FLUSH 10 ML IV ×2 (08:16→19:28)
[2022-01-13] MEDS: ENOXAPARIN 40 MG/0.4 ML SYRINGE SUBCUT (08:16)
[2022-01-13 08:39] LABS: Monotest Negative (Negative)
[2022-01-13] MEDS: ONDANSETRON 4 MG/2 ML INJ IV (13:04)
[2022-01-13] MEDS: POTASSIUM CHLORIDE 20 MEQ TAB 40 MEQ PO (17:25)
[2022-01-13] MEDS: IBUPROFEN 600 MG TABLET PO (19:28)
--- NOTE | 2022-01-13 21:35 | PC.NURSE ---
Patient is alert and oriented. Breath sounds CTA with RA sat of 96%. HRR but tachy in low 100's apically. Denies nausea. BT present but is tender in RUQ of abdomen; reports pain is cramping in quality. Medicated with Ibuprofen for abdominal pain as well as headache and is currently asleep. Denies dysuria, frequency or urgency with urination. Independent with mobility. Complains of feeling blah and only difference in symptoms from admission is she is no longer febrile. Fall risk score is moderate but patient steady on feet so alarm is not currently in ue.
[2022-01-14 00:37] VITALS: BP 119/67; PULSE 90; RESP 18; TEMP 36.2; O2SAT 98
[2022-01-14 04:00] VITALS: BP 122/74; PULSE 93; RESP 18; TEMP 36.6; O2SAT 98
[2022-01-14 06:35] LABS: Hematocrit 32.5 % (36-46); Hemoglobin 10.8 g/dL (12.0-16.0); Mean Corpuscular HGB Conc 33.2 % (30-36); Mean Corpuscular Hemoglobin 28.4 PG (26-34); Mean Corpuscular Volume 85.4 fL (80-100); Platelet Count 183 X10^3/uL (150-400); Red Blood Cell Count 3.81 X10^6/uL (4.0-5.2); Red Cell Distribution Width 15.6 % (11.6-14.8); White Blood Cell Count 11.1 X10^3/uL (4.5-11.0)
[2022-01-14 06:42] LABS: Alanine Aminotransferase 307 IU/L (<35); Albumin 2.3 g/dL (3.5-5.0); Albumin Globulin Ratio 0.7 (1.0-2.8); Alkaline Phosphatase 319 U/L (38-126); Aspartate Aminotransferase 284 IU/L (14-36); Bilirubin Conjugated 0.3 md/dL (0.0-0.3); Bilirubin Total 2.3 mg/dL (0.2-1.3); Bilirubin Unconjugated 0.5 mg/dL (0.0-1.1); Globulin 3.3 g/dL (1.7-4.1); HEMOLYSIS < 15 (0-50); Total Protein 5.6 g/dL (6.3-8.2)
[2022-01-14 06:43] LABS: Add Manual Diff / Slide Review YES
[2022-01-14 07:19] LABS: Anisocytosis 1+; Neutrophils Absolute Manual 3774 /uL (3000-5900); Smudge Cells 1+; Total Cells Counted 100
[2022-01-14 08:00] VITALS: BP 133/81; PULSE 103; RESP 17; TEMP 36.1; O2SAT 98
[2022-01-14] MEDS: POTASSIUM CHLORIDE 20 MEQ TAB 40 MEQ PO ×2 (08:10→16:59)
[2022-01-14] MEDS: ENOXAPARIN 40 MG/0.4 ML SYRINGE SUBCUT (08:10)
[2022-01-14] MEDS: SODIUM CHLORIDE 0.9% FLUSH 10 ML IV (08:11)
--- NOTE | 2022-01-14 08:39 | PM.PN.1 ---
Subjective Subjective Date Patient Seen: 01/14/22 Time Patient Seen: 08:15 Interval history: In the morning fever. No diarrhea. Less pain in general. Does is under discomfort in her abdomen in her upper area after eating. No diaphoresis. Exam Vital Signs (past 8 hours): - 01/14/22 04:00 01/14/22 04:00 Temperature 97.8 F Pulse Rate 93 H Respiratory Rate 18 Blood Pressure 122/74 Pulse Oximetry 98 98 Oxygen Delivery Method Room Air Oxygen Flow Rate 0 0 Oxygen Delivery Method Room Air Oxygen Flow Rate 0 Objective Labs Result Diagrams: 01/14/22 06:19 01/12/22 06:00 Labs: Laboratory Results - last 24 hr 01/13/22 01/14/22 01/14/22 06:04 06:19 06:19 WBC 11.1 H RBC 3.81 L Hgb 10.8 L Hct 32.5 L MCV 85.4 MCH 28.4 MCHC 33.2 RDW 15.6 H Plt Count 183 Neut % (Auto) Angiography Nurse Lymph % (Auto) Angiography Nurse Sac % (Auto) Angiography Nurse Eos % (Auto) Angiography Nurse Baso % (Auto) Angiography Nurse Neut # (Auto) Angiography Nurse Lymph # (Auto) Angiography Nurse Sac # (Auto) Angiography Nurse Eos # (Auto) Angiography Nurse Baso # (Auto) Angiography Nurse Total Counted 100 Seg Neutrophils % 34.0 L Lymphocytes % (Manual) 43.0 Atypical Lymphs % 4.0 H Monocytes % (Manual) 18.0 H Myelocytes % 1.0 H Neutrophils # (Manual) 3774 Smudge Cells 1+ H RBC Morphology See below Anisocytosis 1+ H Magnesium Total Bilirubin 2.3 H Conjugated Bilirubin 0.3 Unconjugated Bilirubin 0.5 AST 284 H ALT 307 H Alkaline Phosphatase 319 H Total Protein 5.6 L Albumin 2.3 L Globulin 3.3 Albumin/Globulin Ratio 0.7 L Monoscreen Negative 01/14/22 06:19 WBC RBC Hgb Hct MCV MCH MCHC RDW Plt Count Neut % (Auto) Lymph % (Auto) Sac % (Auto) Eos % (Auto) Baso % (Auto) Neut # (Auto) Lymph # (Auto) Sac # (Auto) Eos # (Auto) Baso # (Auto) Total Counted Seg Neutrophils % Lymphocytes % (Manual) Atypical Lymphs % Monocytes % (Manual) Myelocytes % Neutrophils # (Manual) Smudge Cells RBC Morphology Anisocytosis Magnesium 2.0 Total Bilirubin Conjugated Bilirubin Unconjugated Bilirubin AST ALT Alkaline Phosphatase Total Protein Albumin Globulin Albumin/Globulin Ratio Monoscreen [facility] Medical History ADHD (attention deficit hyperactivity disorder) (2007) Anemia Anxiety and depression (08/25/16) Attention deficit hyperactivity disorder (ADHD) (08/25/16) Bulimia (1993) Chickenpox (1985) Depression (2007) Hypertension Sinus drainage Sleep apnea Stomach ulcer Surgical History History of surgery (12/24/20) Status post delivery (09/10/04) Status post knee surgery Family History Brother Age: 45 Crohn's disease Father Age: 68 Hypertension Mother Age: 65 Hypertension High cholesterol Grandfather Stroke Grandmother Lung cancer Social History household members: friend(s) Smoking Status: Current every day smoker Tobacco: How many years used: 8 second hand exposure: No alcohol intake: current substance use type: does not use Assessment & Plan Assessment & Plan narrative: This is a 46 year old female who returned recently from a trip to [place] in [facility] with fatigue, recurrent fever, joint pains and marked hepatitis with splenomegaly noted on MRCP. Patient has been discussed by telephone with ID at [facility]. Therefore workup was suggested with a respiratory panel, GI panel, Nikihl-Noguera, cytomegalovirus, dengue fever assessment and hepatitis E assessment. These labs have been ordered. 1. Acute hepatitis with splenomegaly, recurrent fever after travel. Today no fever by persistent elevated heart rate of 103. Liver function tests slightly increased today. On this admission, MRCP performed given abdominal ultrasound which showed GBWT and trace pericholecystic fluid. This was also seen on MRCP but no obstruction or gallstones were visualized, this likely represents sequelae of hepatic inflammation. Patient tolerating diet as tolerated. Brucellosis antibodies sent. Blood and urine cultures are unremarkable. Hepatitis serologies, suspicion would be for hepatitis A but hepatitis A tests are negative. Hepatitis E is endemic to [place] and these tests have been ordered. Due to elevated liver enzymes and enlarged spleen tested for mono and negative monoscreen.? Acetaminophen has been discontinued. Continue to monitor liver enzymes. For pain patient is to use ibuprofen. 2. HTN ?Continue home medications.? Stable. Code: Full DVT: Lovenox can be discontinued due to mobility in room. Dispo: Patient medically stable. Once further delineation of the patient's diagnosis, and clarification treatment plan is established, can be discharged home with specific plan. Time Spent With Patient Critical Care time: I spent a total of [] minutes of critical care time on this patient's care today; this time is exclusive of procedural time.
[2022-01-14 12:00] VITALS: BP 109/75; PULSE 101; RESP 17; TEMP 35.9; O2SAT 97
[2022-01-14 16:00] VITALS: BP 128/80; PULSE 97; RESP 16; TEMP 36.6; O2SAT 99
--- NOTE | 2022-01-14 16:55 | P.DS_ITS ---
History of Present Illness History of Present Illness Date Patient Seen: 01/14/22 Time Patient Seen: 16:20 Chief complaint: Fever, Lower Back Pain, Stomach Cramping Narrative: Nataly Parker is a 46-year-old female with hypertension and ADHD with a previous history?of some tobacco use,?presented to the emergency department with fevers and nausea.? She returned from a trip to [place] about 1 week prior to presentation and the fever started about 1 day prior to presentation. The fever had been as high as 103 normally ranging between 101-102.? She denied vomiting but has had nausea particularly worse after eating.? She endorsed having abdo sherin cramping, bloating and orange colored urine that turned to brown prior to presentation.? She had been drinking as much water she can, while in [place] she did realize that she had eaten some raw vegetables as part of her salads and hamburgers.? She denies any diarrhea and in fact only regular BMs in the past week which is not normal for her.? She denied shortness of breath, chest pain, or skin changes. Discharge Providers Provider Date of admission: 01/11/22 18:13 Discharge Date: 01/14/22 Primary care physician: Ricki Cruz MD Discharge provider: Gretel Villaseñor MD Summary Hospital Course Discharge Diagnosis: Most responsible diagnosis: Infectious hepatitis cause unknown Pre admit diagnosis: Infectious hepatitis cause unknown Fever Jaundice Elevated liver enzymes Elevated neutrophils Hyperbilirubinemia Nausea Dehydration Pericholecystic fluid and wall thickening Marked gallbladder wall thickening Mild splenomegaly Abdominal pain Post admit diagnoses: Mild leukocytosis Blood and urine cultures confirmed negative Hypokalemia Secondary diagnoses: ADHD (attention deficit hyperactivity disorder) (2007) Anemia Anxiety and depression (08/25/16) Attention deficit hyperactivity disorder (ADHD) (08/25/16) Bulimia (1993) Chickenpox (1985) Depression (2007) Hypertension Sinus drainage Sleep apnea Stomach ulcer Status post delivery (09/10/04) Status post knee surgery Hospital Course: The patient presented post trip to [place] with jaundice and documented elevated liver enzymes. Patient has had nausea and fever as well. The cause of this is likely infectious however the specific infective cause was not determined during the hospital stay. Hepatitis A, B and C were all negative. HIV was negative. Blood and urine cultures were negative. Abdominal ultrasound and MRCP completed. At the time of discharge patient had her and no diarrhea and no nausea. Still some persistent intestinal discomfort from intestinal gas. Many of the tests still pending at the time of discharge but the would not change the course of treatment. Goal is to discharge the patient and have her finish recovery at home. Tests still pending at the time of discharge include test for dengue fever, hepatitis E, CMV, EBV. GI panel and respiratory panel. Primary care physician can follow up on these to inform the patient of any specific diagnoses. Status at Discharge Cognitive/behavioral status at discharge: at baseline, oriented Functional status at discharge: independent ambulation Overall status at discharge: patient is progressing back to baseline Time Spent with Patient Time spent: Greater than 30 minutes Exam Vital Signs (past 8 hours): - 01/14/22 12:00 01/14/22 12:00 01/14/22 16:00 Temperature 96.7 F L Pulse Rate 101 H Respiratory Rate 17 Blood Pressure 109/75 Pulse Oximetry 97 97 99 Oxygen Delivery Method Room Air Room Air Oxygen Flow Rate 0 0 01/14/22 16:00 Temperature 97.8 F Pulse Rate 97 H Respiratory Rate 16 Blood Pressure 128/80 Pulse Oximetry 99 Oxygen Delivery Method Oxygen Flow Rate 0 Oxygen Delivery Method Room Air Oxygen Flow Rate 0 Narrative Exam Narrative: Gen: Alert, oriented, well-developed ? female, appears her stated age of 46, NAD HEENT: normocephalic, atraumatic, conjunctiva clear, sclera icterus, oral mucosa pink and moist, head normocephalic. Neck: supple, full ROM, no JVD, trachea is midline Resp: Lungs clear to auscultation.? No wheezes or crackles.? Adequate air entry throughout the lung landry. CV:? Normal rhythm.? S1-S2.? No extra sounds, no murmur or rubs Abd: soft, tender at sites where there is increased bowel sounds, bowel sounds normal. Skin:? Appears to have jaundice, no lesions or rashes, dry and intact Neuro: Alert and oriented X 4 w/no focal deficits. Speech clear and coherent.? No localized neurological findings. Extremities: moves all 4 extremities, is ambulatory, negative Dionne?s sign Psyche: normal mood and affect. Objective Labs Result Diagrams: 01/14/22 06:19 01/12/22 06:00 Labs: Laboratory Results - last 24 hr 01/14/22 01/14/22 01/14/22 06:19 06:19 06:19 WBC 11.1 H RBC 3.81 L Hgb 10.8 L Hct 32.5 L MCV 85.4 MCH 28.4 MCHC 33.2 RDW 15.6 H Plt Count 183 Neut % (Auto) Sales And Service Specialist Lymph % (Auto) Sales And Service Specialist [place] % (Auto) Sales And Service Specialist Eos % (Auto) Sales And Service Specialist Baso % (Auto) Sales And Service Specialist Neut # (Auto) Sales And Service Specialist Lymph # (Auto) Sales And Service Specialist [place] # (Auto) Sales And Service Specialist Eos # (Auto) Sales And Service Specialist Baso # (Auto) Sales And Service Specialist Total Counted 100 Seg Neutrophils % 34.0 L Lymphocytes % (Manual) 43.0 Atypical Lymphs % 4.0 H Monocytes % (Manual) 18.0 H Myelocytes % 1.0 H Neutrophils # (Manual) 3774 Smudge Cells 1+ H RBC Morphology See below Anisocytosis 1+ H Magnesium 2.0 Total Bilirubin 2.3 H Conjugated Bilirubin 0.3 Unconjugated Bilirubin 0.5 AST 284 H ALT 307 H Alkaline Phosphatase 319 H Total Protein 5.6 L Albumin 2.3 L Globulin 3.3 Albumin/Globulin Ratio 0.7 L PFSH Medical History ADHD (attention deficit hyperactivity disorder) (2007) Anemia Anxiety and depression (08/25/16) Attention deficit hyperactivity disorder (ADHD) (08/25/16) Bulimia (1993) Chickenpox (1985) Depression (2007) Hypertension Sinus drainage Sleep apnea Stomach ulcer Surgical History History of surgery (12/24/20) Status post delivery (09/10/04) Status post knee surgery Family History Brother Age: 45 Crohn's disease Father Age: 68 Hypertension Mother Age: 65 Hypertension High cholesterol Grandfather Stroke Grandmother Lung cancer Social History household members: friend(s) Smoking Status: Current every day smoker Tobacco: How many years used: 8 second hand exposure: No alcohol intake: current substance use type: does not use Discharge Plan Discharge Plan Patient Disposition: Home Discharge orders & Medications Prescriptions: New dicyclomine 20 mg tablet 20 mg PO QID Qty: 30 0RF Continued lisinopril 20 mg tablet 20 mg PO DAILY Qty: 90 3RF ibuprofen 200 mg tablet 400 mg PO Q6H Qty: 60 0RF Vyvanse 60 mg capsule 60 mg PO QAM Label Comments: TAKE 1 CAPSULE BY MOUTH DAILY Discontinued hydrochlorothiazide 25 mg tablet 25 mg PO DAILY Qty: 90 3RF acetaminophen [Tylenol] 325 mg capsule 650 mg PO QID PRN (Reason: pain) Qty: 60 0RF Follow up/Referrals: Ricki Cruz MD [Primary Care Provider] - Discharge Data Primary Care Provider: Ricki Cruz Attending Provider: Onesimo Earl
--- NOTE | 2022-01-14 18:10 | PC.NURSE ---
Pt is dressed and ready for discharge home with Friend/Neighbor. IV has been removed. Went over d/c instructions with Pt - discussed d/c meds, time of last dose, reviewed stroke education, reminded Pt to take her full course of abx unless her PCP states otherwise. Pt to follow up with Dr. Cruz. Pt denies further questions and was escorted to ER entrance to ride home with her friend.
[2022-01-16 14:08] LABS: EBV Virus IgM Ab < 36.0 U/mL (0.0-35.9)
[2022-01-19 07:42] LABS: Brucella AB IgG Negative (Negative); Brucella AB IgM Negative (Negative)
[2022-01-19 09:59] LABS: Miscellaneous to LabCorp HEP E IgG/IgM
[2022-01-21 12:17] LABS: Dengue IgG 1.07 ISR (<1.65)
== END 2022-01-14 18:12 | disposition home or self-care (01) ==
LOC: ED 18:13 → AC 18:13
PROVIDERS: Neuromusculoskeletal Medicine, Sports Medicine; Nurse Practitioner Family; Student in an Organized Health Care Education/Training Program; Admitting Provider Internal Medicine; Emergency Provider Emergency Medicine; PCP Student in an Organized Health Care Education/Training Program; Referring Provider Emergency Medicine; Visit Provider Internal Medicine
DX: B15.9 Hepatitis A without hepatic coma (principal); I10 Essential (primary) hypertension; F90.9 Attention-deficit hyperactivity disorder, unspecified type; D72.829 Elevated white blood cell count, unspecified; E87.6 Hypokalemia; E86.0 Dehydration; R16.1 Splenomegaly, not elsewhere classified; Z20.822 Contact with and (suspected) exposure to COVID-19
CPT/HCPCS: 36415; 74181; 76705; 80048; 80053; 80074; 80076; 80305; 80329; 81001; 81025; 83036; 83605; 83690; 83735; 84145; 85007; 85025; 85610; 85730; 86318; 86622; 86644; 86645; 86664; 86665; 86790; 87040; 87086; 87635; 93005; 93010; 96361; 96372; 96374; 96376; 99284; C9803; G0378; G0480; J1650; J2405

== ENCOUNTER → 2022-01-16 10:51 | Outpatient (CLI) | payer OTHER, SELFPAY ==
[2022-01-11 20:29] VITALS: BMI 32.1
[2022-01-16 11:38] LABS: Hematocrit 34.7 % (36-46); Hemoglobin 11.4 g/dL (12.0-16.0); Mean Corpuscular HGB Conc 32.9 % (30-36); Mean Corpuscular Volume 85.1 fL (80-100); Platelet Count 205 X10^3/uL (150-400); Red Blood Cell Count 4.08 X10^6/uL (4.0-5.2); Red Cell Distribution Width 15.6 % (11.6-14.8); White Blood Cell Count 11.1 X10^3/uL (4.5-11.0)
[2022-01-16 12:05] LABS: Alanine Aminotransferase 224 IU/L (<35); Albumin 2.8 g/dL (3.5-5.0); Albumin Globulin Ratio 0.8 (1.0-2.8); Alkaline Phosphatase 401 U/L (38-126); Aspartate Aminotransferase 160 IU/L (14-36); BUN Creatinine Ratio 20.7 (6-22); Bilirubin Total 1.4 mg/dL (0.2-1.3); Blood Urea Nitrogen 12 mg/dL (7-17); Calcium 8.4 mg/dL (8.4-10.2); Carbon Dioxide 24 mmol/L (22-32); Chloride 104 mmol/L (98-107); Estimated Glomerular Filt Rate > 60 mL/min (>60); Globulin 3.6 g/dL (1.7-4.1); Glucose 122 mg/dL (70-100); HEMOLYSIS < 15 (0-50); Potassium 3.8 mmol/L (3.4-5.1); Sodium 134 mmol/L (137-145); Total Protein 6.4 g/dL (6.3-8.2)
--- NOTE | 2022-01-16 13:27 | DI.MG.S_ITS ---
BILATERAL DIGITAL SCREENING MAMMOGRAM 3D/2D WITH CAD: 01/16/2022 CLINICAL: Routine screening. Comparison is made to exams dated: 01/06/2021 mammogram, 09/01/2019 ultrasound, 09/01/2019 mammogram, 09/30/2018 mammogram, and 08/29/2018 mammogram - [facility]. There are scattered areas of fibroglandular density in both breasts (category b / 25%-50% glandular tissue). Current study was also evaluated with a Computer Aided Detection (CAD) system. No significant masses, calcifications, or other findings are seen in either breast. There has been no significant interval change. IMPRESSION: NEGATIVE There is no mammographic evidence of malignancy. A 1 year screening mammogram is recommended. Based on the Tyrer Cuzick model (a risk assessment model) the patient's lifetime risk is 8.6% and her 10 year risk is 1.5%. According to the ACR, ACS, and NCCN guidelines, an annual breast MRI exam along with mammogram is recommended if the patient's lifetime risk is 20% or greater. This exam was interpreted at Station ID: [id number]. NOTE: For mammograms, a report in lay terms will be sent to the patient. Approximately 15% of breast malignancies will not be visualized mammographically. In the management of a palpable breast mass, a negative mammogram must not discourage biopsy of a clinically suspicious lesion. Electronically Signed By: Joann urbina/[email or web address]:01/16/2022 15:19:29 letter sent: Normal Exam ACR BI-RADS Category 1: Negative 3341F
== END ==
PROVIDERS: Internal Medicine; PCP Student in an Organized Health Care Education/Training Program; Referring Provider Student in an Organized Health Care Education/Training Program; Visit Provider Student in an Organized Health Care Education/Training Program
DX: Z12.31 Encounter for screening mammogram for malignant neoplasm of breast (principal); B25.9 Cytomegaloviral disease, unspecified; E87.6 Hypokalemia; K75.9 Inflammatory liver disease, unspecified
CPT/HCPCS: 36415; 77063; 77067; 80053; 85027

== ENCOUNTER → 2022-01-27 17:09 | Outpatient (CLI) | payer OTHER, SELFPAY ==
[2022-01-11 20:29] VITALS: BMI 32.1
[2022-01-27 17:50] LABS: Appearance Urine UA CLEAR; Bilirubin Urine UA NEGATIVE (NEGATIVE); Color Urine UA YELLOW; Glucose Urine UA NEGATIVE (Negative); Ketones Urine UA NEGATIVE (NEGATIVE); Leukocyte Esterase Urine UA NEGATIVE (NEGATIVE); Nitrite Urine UA NEGATIVE (Negative); Occult Blood Urine UA NEGATIVE (Negative); Protein Urine UA NEGATIVE (Negative); Urobilinogen Urine UA 0.2 E.U./dL (0.2)
[2022-01-27 17:57] LABS: Alanine Aminotransferase 156 IU/L (<35); Albumin 4.2 g/dL (3.5-5.0); Albumin Globulin Ratio 0.9 (1.0-2.8); Alkaline Phosphatase 176 U/L (38-126); Aspartate Aminotransferase 107 IU/L (14-36); BUN Creatinine Ratio 21.1 (6-22); Blood Urea Nitrogen 15 mg/dL (7-17); Calcium 9.6 mg/dL (8.4-10.2); Carbon Dioxide 26 mmol/L (22-32); Chloride 102 mmol/L (98-107); Estimated Glomerular Filt Rate > 60 mL/min (>60); Globulin 4.5 g/dL (1.7-4.1); Glucose 93 mg/dL (70-100); HEMOLYSIS < 15 (0-50); Potassium 4.1 mmol/L (3.4-5.1); Sodium 138 mmol/L (137-145); Total Protein 8.7 g/dL (6.3-8.2)
[2022-01-27 18:06] LABS: Bacteria Urine Few (2-10); Mucus Urine 2+ (Negative); RBC Urine 0-1/HPF (0-5/HPF); Squamous Epithelial Cell Urine 10-30 /HPF (0-5/HPF); WBC Urine 0-1/HPF (0-5/HPF)
[2022-01-27 18:07] LABS: Culture Indicated Urine Cult Not Indicated
[2022-01-27 18:16] LABS: Vitamin D 25 Hydroxy (D3) 38.3 ng/mL (30.0-100.0)
[2022-01-27 18:46] LABS: Vitamin B12 895 pg/mL (239-931)
== END ==
PROVIDERS: PCP Student in an Organized Health Care Education/Training Program; Referring Provider Student in an Organized Health Care Education/Training Program; Visit Provider Student in an Organized Health Care Education/Training Program
DX: B25.1 Cytomegaloviral hepatitis (principal); E86.0 Dehydration; E55.9 Vitamin D deficiency, unspecified; R53.83 Other fatigue
CPT/HCPCS: 36415; 80053; 81001; 82306; 82607

== ENCOUNTER → 2022-02-11 17:17 | Outpatient (CLI) | payer OTHER, SELFPAY ==
[2022-02-11 18:20] LABS: Alanine Aminotransferase 75 IU/L (<35); Albumin 4.2 g/dL (3.5-5.0); Albumin Globulin Ratio 1.1 (1.0-2.8); Alkaline Phosphatase 89 U/L (38-126); Aspartate Aminotransferase 54 IU/L (14-36); Bilirubin Total 0.8 mg/dL (0.2-1.3); Bilirubin Unconjugated 0.6 mg/dL (0.0-1.1); Globulin 3.9 g/dL (1.7-4.1); HEMOLYSIS 21 (0-50); Total Protein 8.1 g/dL (6.3-8.2)
== END ==
PROVIDERS: PCP Student in an Organized Health Care Education/Training Program; Referring Provider Student in an Organized Health Care Education/Training Program; Visit Provider Student in an Organized Health Care Education/Training Program
DX: B25.1 Cytomegaloviral hepatitis (principal)
CPT/HCPCS: 36415; 80076

== ENCOUNTER → 2022-02-12 15:45 | Outpatient (CLI) | payer OTHER, SELFPAY ==
--- NOTE | 2022-02-12 15:46 | DI.RAD.S_ITS ---
PROCEDURE: XR KNEE LT 3V INDICATIONS: left knee pain TECHNIQUE: 3 views of the knee were acquired. COMPARISON: None. FINDINGS: Bones: No fractures or dislocations. No suspicious bony lesions. Soft tissues: No joint effusion. No suspicious soft tissue calcifications. IMPRESSION: No acute osseous abnormalities. If clinical symptoms persist or clinical suspicion for internal derangement is high, consider MRI for further evaluation. Dictated by: Piper Solorio M.D. on 02/12/2022 at 17:03 Approved by: Piper Solorio M.D. on 02/12/2022 at 17:04
== END ==
PROVIDERS: PCP Student in an Organized Health Care Education/Training Program; Referring Provider Student in an Organized Health Care Education/Training Program; Visit Provider Student in an Organized Health Care Education/Training Program
DX: S89.92XA Unspecified injury of left lower leg, initial encounter (principal); X58.XXXA Exposure to other specified factors, initial encounter
CPT/HCPCS: 73562

== ENCOUNTER → 2022-03-03 19:42 | Outpatient (CLI) | payer OTHER, SELFPAY ==
--- NOTE | 2022-03-03 19:44 | DI.MRI.S_ITS ---
PROCEDURE: MR KNEE LT WO CON INDICATIONS: probable left meniscus tear TECHNIQUE: Noncontrast sagittal PD fast spin echo and T2 fast spin echo with fat saturation, sagittal 3-D FLASH with fat saturation; coronal T1 spin echo and PD fast spin echo with fat saturation, and axial PD fast spin echo with fat saturation through the knee. COMPARISON: [facility], CR, XR KNEE LT 3V, 02/12/2022, 16:01. FINDINGS: Image quality: Excellent. Menisci: The medial and lateral menisci demonstrate normal morphology and internal signal. The meniscal root ligaments appear intact. Cruciate ligaments: The anterior and posterior cruciate ligaments appear intact. Medial structures: The medial collateral ligament appears intact. Visualized portions of the pes anserinus tendons appear normal. No abnormal bursal fluid. Lateral structures: The lateral collateral ligament, long and short heads of the biceps femoris tendon appear intact. The popliteus tendon appears normal. Iliotibial band appears normal. Anterior structures: The quadriceps and patellar tendons appear intact. Patellar alignment is normal. No femoral trochlear dysplasia or ventral trochlear prominence. Minimal edema in the superolateral aspect of the infrapatellar fat pad. Bones and cartilage: No bone marrow contusions or fractures. Mild articular cartilage loss overlies the patellar apex. Joint space: There is a small knee joint effusion and a trace Villanueva's cyst. Normal appearing synovial plicae are incidentally noted. IMPRESSION: 1. No internal derangement. 2. Mild patellofemoral compartment articular cartilage loss. 3. Findings which would be consistent with mild/early lateral patellofemoral friction syndrome in the appropriate clinical setting. Dictated by: Nella Bajwa M.D. on 03/04/2022 at 9:30 Approved by: Nella Bajwa M.D. on 03/04/2022 at 9:32
== END ==
PROVIDERS: PCP Student in an Organized Health Care Education/Training Program; Referring Provider Student in an Organized Health Care Education/Training Program; Visit Provider Student in an Organized Health Care Education/Training Program
DX: S89.92XA Unspecified injury of left lower leg, initial encounter (principal); X58.XXXA Exposure to other specified factors, initial encounter
CPT/HCPCS: 73721

== ENCOUNTER → 2022-03-09 15:27 | Outpatient (CLI) | payer OTHER, SELFPAY ==
[2022-03-09 16:44] LABS: Add Manual Diff / Slide Review NO; Basophils Absolute Auto 0 /uL (0-100); Basophils Percent Auto 0.3 % (0-2); Eosinophils Absolute Auto 100 /uL (0-450); Eosinophils Percent Auto 1.2 % (2-4); Hemoglobin 12.7 g/dL (12.0-16.0); Lymphocytes Absolute Auto 2300 /uL (1100-4500); Lymphocytes Percent Auto 28.3 % (25-40); Mean Corpuscular HGB Conc 35.3 % (30-36); Mean Corpuscular Hemoglobin 29.4 PG (26-34); Mean Corpuscular Volume 83.2 fL (80-100); Monocytes Absolute Auto 600 /uL (0-900); Monocytes Percent Auto 6.8 % (3-14); Neutrophils Absolute Auto 5200 /uL (1500-7000); Neutrophils Percent Auto 63.4 % (50-75); Platelet Count 312 X10^3/uL (150-400); Red Blood Cell Count 4.33 X10^6/uL (4.0-5.2); Red Cell Distribution Width 13.5 % (11.6-14.8); White Blood Cell Count 8.3 X10^3/uL (4.5-11.0)
[2022-03-09 17:23] LABS: Alanine Aminotransferase 144 IU/L (<35); Albumin 4.3 g/dL (3.5-5.0); Albumin Globulin Ratio 1.3 (1.0-2.8); Alkaline Phosphatase 102 U/L (38-126); Aspartate Aminotransferase 65 IU/L (14-36); BUN Creatinine Ratio 16.7 (6-22); Bilirubin Total 0.6 mg/dL (0.2-1.3); Blood Urea Nitrogen 11 mg/dL (7-17); Calcium 9.3 mg/dL (8.4-10.2); Carbon Dioxide 27 mmol/L (22-32); Chloride 101 mmol/L (98-107); Estimated Glomerular Filt Rate > 60 mL/min (>60); Globulin 3.4 g/dL (1.7-4.1); Glucose 88 mg/dL (70-100); HEMOLYSIS < 15 (0-50); Potassium 2.9 mmol/L (3.4-5.1); Sodium 141 mmol/L (137-145); Total Protein 7.7 g/dL (6.3-8.2)
== END ==
PROVIDERS: PCP Student in an Organized Health Care Education/Training Program; Referring Provider Student in an Organized Health Care Education/Training Program; Visit Provider Student in an Organized Health Care Education/Training Program
DX: B25.1 Cytomegaloviral hepatitis (principal)
CPT/HCPCS: 36415; 80053; 85025

== ENCOUNTER → 2022-04-22 08:21 | Outpatient (CLI) | payer OTHER, SELFPAY ==
[2022-04-22 09:47] LABS: Alanine Aminotransferase 43 IU/L (<35); Albumin 4.4 g/dL (3.5-5.0); Albumin Globulin Ratio 1.3 (1.0-2.8); Alkaline Phosphatase 99 U/L (38-126); Aspartate Aminotransferase 28 IU/L (14-36); BUN Creatinine Ratio 25.4 (6-22); Bilirubin Total 0.6 mg/dL (0.2-1.3); Blood Urea Nitrogen 15 mg/dL (7-17); Carbon Dioxide 26 mmol/L (22-32); Chloride 99 mmol/L (98-107); Estimated Glomerular Filt Rate > 60 mL/min (>60); Globulin 3.4 g/dL (1.7-4.1); Glucose 100 mg/dL (70-100); HEMOLYSIS < 15 (0-50); Potassium 3.7 mmol/L (3.4-5.1); Sodium 137 mmol/L (137-145); Total Protein 7.8 g/dL (6.3-8.2)
== END ==
PROVIDERS: PCP Student in an Organized Health Care Education/Training Program; Referring Provider Student in an Organized Health Care Education/Training Program; Visit Provider Student in an Organized Health Care Education/Training Program
DX: B25.1 Cytomegaloviral hepatitis; E87.6 Hypokalemia
CPT/HCPCS: 36415; 80053

== ENCOUNTER → 2022-12-01 08:51 | Outpatient (CLI) | payer OTHER, SELFPAY ==
[2022-12-01 09:31] LABS: Add Manual Diff / Slide Review NO; Basophils Absolute Auto 0 /uL (0-100); Basophils Percent Auto 0.6 % (0-2); Eosinophils Absolute Auto 100 /uL (0-450); Eosinophils Percent Auto 1.2 % (2-4); Hematocrit 42.2 % (36-46); Hemoglobin 14.3 g/dL (12.0-16.0); Lymphocytes Absolute Auto 2200 /uL (1100-4500); Lymphocytes Percent Auto 28.9 % (25-40); Mean Corpuscular HGB Conc 33.9 % (30-36); Mean Corpuscular Hemoglobin 28.5 PG (26-34); Mean Corpuscular Volume 84.1 fL (80-100); Monocytes Absolute Auto 500 /uL (0-900); Neutrophils Absolute Auto 4800 /uL (1500-7000); Neutrophils Percent Auto 63.3 % (50-75); Platelet Count 344 X10^3/uL (150-400); Red Blood Cell Count 5.02 X10^6/uL (4.0-5.2); Red Cell Distribution Width 12.5 % (11.6-14.8); White Blood Cell Count 7.5 X10^3/uL (4.5-11.0)
[2022-12-01 09:46] LABS: Alanine Aminotransferase 22 IU/L (<35); Albumin 4.4 g/dL (3.5-5.0); Albumin Globulin Ratio 1.5 (1.0-2.8); Alkaline Phosphatase 84 U/L (38-126); Aspartate Aminotransferase 21 IU/L (14-36); BUN Creatinine Ratio 21.6 (6-22); Bilirubin Total 0.6 mg/dL (0.2-1.3); Blood Urea Nitrogen 16 mg/dL (7-17); Calcium 9.5 mg/dL (8.4-10.2); Carbon Dioxide 31 mmol/L (22-32); Chloride 99 mmol/L (98-107); Estimated Glomerular Filt Rate > 60 mL/min (>60); Globulin 2.9 g/dL (1.7-4.1); Glucose 92 mg/dL (70-100); HEMOLYSIS < 15 (0-50); Potassium 3.7 mmol/L (3.4-5.1); Sodium 138 mmol/L (137-145); Total Protein 7.3 g/dL (6.3-8.2)
[2022-12-01 10:21] LABS: TSH w/ Reflex to FT4 0.98 uIU/mL (0.47-4.68)
[2022-12-01 17:50] LABS: Appearance Urine UA CLEAR; Bilirubin Urine UA NEGATIVE (NEGATIVE); Color Urine UA YELLOW; Glucose Urine UA NEGATIVE (Negative); Ketones Urine UA NEGATIVE (NEGATIVE); Leukocyte Esterase Urine UA NEGATIVE (NEGATIVE); Nitrite Urine UA NEGATIVE (Negative); Occult Blood Urine UA NEGATIVE (Negative); Protein Urine UA NEGATIVE (Negative); Urobilinogen Urine UA 0.2 E.U./dL (0.2)
[2022-12-01 18:17] LABS: Bacteria Urine None Seen; Culture Indicated Urine Cult Not Indicated; RBC Urine None Seen (0-5/HPF); Squamous Epithelial Cell Urine 5-10 /HPF (0-5/HPF); WBC Urine 1-5/HPF (0-5/HPF)
== END ==
PROVIDERS: PCP Pediatrics; Referring Provider Pediatrics; Visit Provider Pediatrics
DX: R53.83 Other fatigue (principal)
CPT/HCPCS: 36415; 80053; 81001; 84443; 85025

== ENCOUNTER → 2023-02-16 08:03 | Outpatient (CLI) | payer OTHER, SELFPAY ==
--- NOTE | 2023-02-16 | DI.MG.S_ITS ---
BILATERAL DIGITAL SCREENING MAMMOGRAM 3D/2D WITH CAD: 02/16/2023 CLINICAL: Routine screening. Comparison is made to exams dated: 01/16/2022 mammogram, 01/06/2021 mammogram, and 09/01/2019 mammogram - [facility]. There are scattered areas of fibroglandular density in both breasts (category b / 25%-50% glandular tissue). Current study was also evaluated with a Computer Aided Detection (CAD) system. No significant masses, calcifications, or other findings are seen in either breast. There has been no significant interval change. IMPRESSION: NEGATIVE There is no mammographic evidence of malignancy. A 1 year screening mammogram is recommended. Based on the Tyrer Cuzick model (a risk assessment model) the patient's lifetime risk is 8.6% and her 10 year risk is 1.5%. According to the ACR, ACS, and NCCN guidelines, an annual breast MRI exam along with mammogram is recommended if the patient's lifetime risk is 20% or greater. This exam was interpreted at Station ID: [id number]. NOTE: For mammograms, a report in lay terms will be sent to the patient. Approximately 15% of breast malignancies will not be visualized mammographically. In the management of a palpable breast mass, a negative mammogram must not discourage biopsy of a clinically suspicious lesion. Electronically Signed By: Reid li/cristi:02/16/2023 11:15:07 letter sent: Normal Exam ACR BI-RADS Category 1: Negative 3341F
== END ==
PROVIDERS: PCP Family Medicine; Referring Provider Family Medicine; Visit Provider Family Medicine
DX: Z12.31 Encounter for screening mammogram for malignant neoplasm of breast (principal)
CPT/HCPCS: 77063; 77067

== ENCOUNTER → 2023-05-17 16:23 | Outpatient (CLI) | payer OTHER, SELFPAY ==
[2023-05-17 19:59] LABS: Urine N gonorrhoeae NOT DETECTED
[2023-05-17 20:08] LABS: Urine Chlamydia NOT DETECTED
== END ==
PROVIDERS: PCP Family Medicine; Visit Provider Family Medicine
DX: N89.8 Other specified noninflammatory disorders of vagina (principal)
CPT/HCPCS: 87210; 87491; 87591

== ENCOUNTER → 2023-12-07 16:58 | Outpatient (CLI) | payer OTHER, SELFPAY ==
[2023-12-07 17:27] LABS: Hematocrit 37.3 % (36-46); Hemoglobin 12.7 g/dL (12.0-16.0); Mean Corpuscular Hemoglobin 29.3 PG (26-34); Mean Corpuscular Volume 86.2 fL (80-100); Platelet Count 299 X10^3/uL (150-400); Red Blood Cell Count 4.33 X10^6/uL (4.0-5.2); White Blood Cell Count 11.8 X10^3/uL (4.5-11.0)
[2023-12-07 17:38] LABS: Alanine Aminotransferase 18 IU/L (<35); Albumin 3.7 g/dL (3.5-5.0); Albumin Globulin Ratio 1.3 (1.0-2.8); Alkaline Phosphatase 78 U/L (38-126); Aspartate Aminotransferase 20 IU/L (14-36); BUN Creatinine Ratio 28.1 (6-22); Bilirubin Total 0.4 mg/dL (0.2-1.3); Blood Urea Nitrogen 18 mg/dL (7-17); Calcium 9.3 mg/dL (8.4-10.2); Carbon Dioxide 26 mmol/L (22-32); Chloride 105 mmol/L (98-107); Cholesterol 170 mg/dL (140-199); Estimated Glomerular Filt Rate > 60 mL/min (>60); Globulin 2.9 g/dL (1.7-4.1); Glucose 88 mg/dL (70-100); HDL Cholesterol 57 mg/dL (40-60); HEMOLYSIS < 15 (0-50); LDL Cholesterol Calculated 101 mg/dL (<100); Potassium 3.7 mmol/L (3.4-5.1); Sodium 138 mmol/L (137-145); Total Protein 6.6 g/dL (6.3-8.2); Triglycerides 59 mg/dL (35-150)
== END ==
PROVIDERS: PCP Family Medicine; Referring Provider Family Medicine; Visit Provider Family Medicine
DX: I10 Essential (primary) hypertension (principal); E66.9 Obesity, unspecified; R63.1 Polydipsia; R53.82 Chronic fatigue, unspecified
CPT/HCPCS: 36415; 80053; 80061; 83036; 85027

== ENCOUNTER → 2024-03-28 15:29 | Outpatient (CLI) | payer OTHER, SELFPAY ==
--- NOTE | 2024-03-28 15:30 | DI.MG.S_ITS ---
BILATERAL DIGITAL SCREENING MAMMOGRAM 3D/2D WITH CAD: 03/28/2024 CLINICAL: Routine screening. Comparison is made to exams dated: 02/16/2023 mammogram, 01/16/2022 mammogram, 01/06/2021 mammogram, 09/01/2019 mammogram, 09/30/2018 mammogram, and 09/14/2018 mammogram - [facility]. There are scattered areas of fibroglandular density (category b / 25%-50% glandular tissue). Current study was also evaluated with a Computer Aided Detection (CAD) system. There are benign post operative findings in the left breast. No significant masses, calcifications, or other findings are seen in either breast. There has been no significant interval change. IMPRESSION: BENIGN There is no mammographic evidence of malignancy. A 1 year screening mammogram is recommended. Based on the Tyrer Cuzick model (a risk assessment model) the patient's lifetime risk is 8.5% and her 10 year risk is 1.6%. According to the ACR, ACS, and NCCN guidelines, an annual breast MRI exam along with mammogram is recommended if the patient's lifetime risk is 20% or greater. This exam was interpreted at Station ID: [id number]. NOTE: For mammograms, a report in lay terms will be sent to the patient. Approximately 15% of breast malignancies will not be visualized mammographically. In the management of a palpable breast mass, a negative mammogram must not discourage biopsy of a clinically suspicious lesion. Electronically Signed By: Berkley Conde M.D., Ph.D. maik/cristi:03/30/2024 22:06:05 letter sent: Normal Exam ACR BI-RADS Category 2: Benign
== END ==
PROVIDERS: PCP Family Medicine; Referring Provider Family Medicine; Visit Provider Family Medicine
DX: Z12.31 Encounter for screening mammogram for malignant neoplasm of breast (principal)
CPT/HCPCS: 77063; 77067

== ENCOUNTER 2024-05-30 09:03 | Day surgery (SDC) | payer OTHER, SELFPAY ==
[2024-05-30 09:40] VITALS: BP 109/77; PULSE 88; RESP 16; TEMP 36.2; O2SAT 99
[2024-05-30] MEDS: SODIUM CHLORIDE 0.9% 1,000 ML 100 ML IV (09:43)
--- NOTE | 2024-05-30 10:05 | PM.HP.IH.1 ---
History of Present Illness History of Present Illness Date Patient Seen: 05/30/24 Time Patient Seen: 10:06 Chief complaint: SDC Narrative: 48-year-old white female with family history of Crohn's disease and polyps, presents for screening colonoscopy. [facility] Medical History (Updated 05/30/24 @ 10:06 by Sumit Malik MD) Colon cancer screening Obesity (BMI 30.0-34.9) Anemia Sleep apnea Sinus drainage Stomach ulcer Hypertension Bulimia (1993) Chickenpox (1985) ADHD (attention deficit hyperactivity disorder) (2007) Depression (2007) Anxiety and depression (08/25/16) Attention deficit hyperactivity disorder (ADHD) (08/25/16) Surgical History History of surgery (12/24/20) Status post knee surgery Status post delivery (09/10/04) Family History Brother Age: 47 Crohn's disease Father Age: 70 Hypertension Mother Age: 67 Hypertension High cholesterol Grandfather Stroke Grandmother Lung cancer Social History household members: friend(s) Smoking Status: Current some day smoker Tobacco: How many years used: 8 second hand exposure: No alcohol intake: current substance use type: does not use Meds Home Medications and Allergies Home Medications Medication Instructions Recorded Confirmed Type insulin syr/ndl U100 half ivonne 0.3 #15 ea 12/09/23 Rx mL 29 gauge x 1/2 dextroamphetamine-amphetamine 10 10 mg PO DAILY #30 tabs 03/07/24 03/07/24 Rx mg tablet (Adderall) dextroamphetamine-amphetamine ER 30 mg PO DAILY #30 caps 03/07/24 03/07/24 Rx 30 mg 24hr capsule,extend release (Adderall XR) semaglutide 0.25 mg or 0.5 mg (2 1 mg (1.472 mL) SUBCUT QWEEK #9 mL 03/07/24 03/07/24 Rx mg/3 mL) subcutaneous pen injector lisinopril 20 mg tablet 20 mg PO DAILY #90 tabs 04/10/24 05/30/24 Rx sodium,potassium,mag sulfates 17.5 See Rx Instructions PO .COMPLEX 04/21/24 Rx gram-3.13 gram-1.6 gram oral soln #354 mL (Suprep Bowel Prep Kit) hydrochlorothiazide 25 mg tablet 25 mg PO DAILY 05/30/24 05/30/24 History semiglutide 75 mg SUBCUT WEEKLY 05/30/24 History Allergies Allergy/AdvReac Type Severity Reaction Status Date / Time No Known Drug Allergies Allergy Verified 05/30/24 09:26 Exam Vital Signs (past 8 hours): - 05/30/24 09:40 Temperature 97.2 F L Pulse Rate 88 Respiratory Rate 16 Blood Pressure 109/77 Pulse Oximetry 99 Oxygen Delivery Method Room Air Oxygen Delivery Method Room Air Narrative Exam Narrative: Gen: NAD, sitting comfortably in bed, appears well HEENT: Sclera are anicteric, head is normocephalic and atraumatic, trachea is midline. CV: RRR, no JVD Resp: clear to auscultation bilaterally, equal chest wall movement bilaterally Abd: soft, nontender, normoactive bowel sounds Ext: no edema, full range of motion Neuro: Cranial nerves II-XII grossly intact, no focal deficits Skin: No erythema or ecchymosis Assessment & Plan Assessment and plan (1) Colon cancer screening: Status: Acute Assessment & Plan narrative: Patient presents for colonoscopy Risks, benefits, alternatives to colonoscopy explained, including but not limited to bowel perforation or other serious complication requiring surgery at less than 1 in 5000 colonoscopies, abdominal pain, cramping or bleeding and less than 1% of colonoscopies, and the chances that we find a diagnosis that would require further intervention of about 2%. Patient agrees to proceed. Time-Based Coding :: [TOTAL MINUTES] spent with patient and on the chart (including review of chart, obtaining history, exam, reviewing outside data, placing orders, documenting exam and treatment plan, and counseling patient) on [DATE]. PROFEE Cribbing Setter Document charge(s): No
--- NOTE | 2024-05-30 10:23 | PM.OP.COLON ---
Operative Date/Time/Diagnoses Date of procedure: 05/30/24 Time of procedure: 10:23 Pre-op diagnosis: Colon screening Post-op diagnosis: same Procedure & Clinicians Study performed: Colonoscopy Same procedure as scheduled: Yes Indications: Family history of Crohn's and polyps Surgeon: Sumit Malik Procedure Notes SCOAP/Timeout: Performed Procedure in detail: Time-out was performed. Mac was induced. Patient was placed in left lateral decubitus position. The perineum was inspected without any gross abnormality. Lubricated pediatric colonoscope was inserted and advanced to the cecum. The terminal ileum was intubated. The colonoscope was withdrawn slowly inspecting the circumference of the colon. Very small polyps may have been missed, prep quality was adequate. Retroflexed view of the rectum showed small, non prolapsed nonbleeding internal hemorrhoids. The scope was withdrawn the patient was taken to PACU in good condition. Scope withdrawal time: 6 Sedation minutes: 11 Findings: internal hemorrhoids Specimen(s): none sent Complications: none Impression: Normal colon Post-procedure Recommendations: Colonoscopy in 10 years Follow up: as needed Disposition: PACU
[2024-05-30 10:26] VITALS: BP 91/55; PULSE 95; RESP 18; TEMP 36.2; O2SAT 95
[2024-05-30 10:31] VITALS: BP 97/60; PULSE 86; RESP 18; TEMP 36.2; O2SAT 96
[2024-05-30 10:37] VITALS: BP 93/54; PULSE 87; RESP 18; TEMP 36.2; O2SAT 98
[2024-05-30 10:43] VITALS: BP 100/76; PULSE 84; RESP 18; TEMP 36.2; O2SAT 99
== END 2024-05-30 10:50 | disposition home or self-care (01) ==
PROVIDERS: PCP Family Medicine; Referring Provider Surgery; Visit Provider Surgery
PROC: 0DJD8ZZ Inspection of Lower Intestinal Tract, Via Natural or Artificial Opening Endoscopic (ICD-10-PCS; CPT 45378; principal; 2024-05-30 10:15)
DX: Z12.11 Encounter for screening for malignant neoplasm of colon (principal); Z83.719 Family history of colon polyps, unspecified; K64.8 Other hemorrhoids; I10 Essential (primary) hypertension; F17.200 Nicotine dependence, unspecified, uncomplicated; E66.9 Obesity, unspecified; Z68.32 Body mass index [BMI] 32.0-32.9, adult
CPT/HCPCS: G0105; J2704